=== PATIENT | female | born 1965 | race Caucasian/White ===

== ENCOUNTER 2017-07-23 20:44 | Observation (INO) | payer OTHER ==
--- NOTE | ~2017-07-23 | HEMODYNAMI ---
PATIENT:MOHINI WOO MEDICAL RECORD: [id number] : 63 LOCATION[facility]19 [id number] ADMISSION DATE: 07/23/17 Generatedon:07/24/201713:40 Patient name: MOHINI WOO Patient #: [id number] SSN: : 1965 Date of study: 07/24/2017 Page: Of Hemodynamic Procedure Report Patient Data Patient Demographics Procedure consent was obtained First Name: MOHINI Gender: Female Last Name: CHILO : 1965 Middle Initial: MARIO Age: 52 year(s) Patient #: [id number] Race: Unknown Additional ID: [id number] Contact details Address: [address] State: [place] City: [place] Zip code: [address] Past Medical History Allergies: No known allergies Admission Admission Data Admission Date: 07/23/2017 Admission Time: 21:59 Room #: D.2119 Lab Results Lab Result Date: 07/24/2017 Lab Result Time: 0:00 Biochemistry Name Units Result Min Max BUN mg/dl 23 --(----)-* 7 18 Creatinine mg/dl 0.6 --(*---)-- 0.6 1.3 CBC Name Units Result Min Max Hemoglobin g/dl 12.9 -*(----)-- 13.5 17.5 Procedure Procedure Types Cath Procedure Diagnostic Procedure [facility] w/Coronaries PCI Procedure Coronary Stent Coronary Stent Initial Miscellaneous Procedures Moderate Sedation up to 15 minutes Procedure Description Procedure Date Procedure Date: 07/24/2017 Procedure Start Time: 13:15 Procedure End Time: 13:38 Procedure Staff Name Function Blaine Merlos MD Performing Physician Rosy Vizcaino RT Monitor Willow Emerson RT Scrub Jarrod Samuels RN Nurse Procedure Data Cath Procedure Fluoroscopy Diagnostic fluoroscopy Total fluoroscopy Time: 6.2 time: 6.2 min min Diagnostic fluoroscopy Total fluoroscopy dose: dose: 1101 mGy 1101 mGy Contrast Material Contrast Material Type Amount (ml) Isovue 300 86 Entry Location Entry Primary Successful Side Size Upsize Upsize Entry Closure Abarca ccessful Closure Location (Fr) 1 (Fr) 2 (Fr) Remarks Device Remarks Radial Right 6 Fr Mechanical TR Band artery Short Compression Estimated blood loss: 10 ml Diagnostic catheters Device Type Used For End Catheter Placement Diagnostic Terumo 5Fr Ventriculography Eminence 110cm catheter Diagnostic Infinity 5Fr Procedure AR MOD Catheter Procedure Complications No complications Procedure Medications Medication Administration Route Dosage Oxygen NC 2 l/min Heparin Flush Bag added to field 2 bags (1000units/500ml NS) 0.9% NaCl I.V. 100 ml/hr Radial Cocktail added to field 1 syringe (Verapomil 2mg/Nitro 400mcg/Heparin 1500units) Fentanyl I.V. 50 mcg Versed I.V. 1 mg Fentanyl I.V. 50 mcg Versed I.V. 1 mg Radial Cocktail I.A. 1 syringe (Verapomil 2mg/Nitro 400mcg/Heparin 1500units) Heparin Bolus I.V. 4000 units Integrilin (Bolus I.V. 7.9 ml 2mg/ml) Integrilin (Bolus wasted 2.1 ml 2mg/ml) Plavix P.O. 600 mg Hemodynamics Rest HGB: 12.9 (g/dl) Heart Rate: 84 (bpm) Pressure Samples Time Site Value (mmHg) Purpose Heart Use Rate(bpm) 13:20 LV 108/4,9 Snapshot 95 13:21 AO 111/79(93) Pullback 94 13:21 LV 101/13,11 Pullback 94 Gradients Valve Time Site 1 Site 2 Mean SEP/DFP Peak To Heart Use (mmHg) (sec/min) Peak Rate (mmHg) (bpm) Aortic 13:21 LV AO 0 94 101/13,11 111/79(93) Calculations Valve P-P Mean Valve Index Valve Source Name Gradient Area Flow (cm2) Aortic 0 0 Snapshots Pre Cath Intra NCS Post Cath Vital Signs Time Heart Resp SPO2 etCO2 NIBP (mmHg) Rhythm Pain Sedation Rate (ipm) (%) (mmHg) Status Level (bpm) 13:07:33 78 21 100 37.5 136/86(109) NSR 0 (11) 10(A) , No pain 13:11:47 76 19 97 35.3 125/79(99) NSR 0 (11) 10(A) , No pain 13:15:55 76 17 97 24 130/79(100) NSR 0 (11) 9(A) , No pain 13:20:04 83 16 97 37.6 137/81(119) NSR 0 (11) 9(A) , No pain 13:24:14 98 17 94 20.3 118/85(100) NSR 0 (11) 9(A) , No pain 13:28:18 114 17 95 39 123/83(108) NSR 0 (11) 9(A) , No pain 13:32:24 88 17 96 14.2 124/86(99) NSR 0 (11) 9(A) , No pain 13:36:32 95 16 98 39.1 131/81(114) NSR 0 (11) 10(A) , No pain 13:38:20 89 15 98 39 121/83(99) NSR 0 (11) 10(A) , No pain Medications Time Medication Route Dose Verified Delivered Reason Note s Effectiveness by by 13:09:20 Oxygen NC 2 l/min Blaine Garay Per physician St. Manohar Samuels RN, MD 13:09:29 Heparin Flush added 2 bags Blaine Garay used for Bag to St. Manohar Samuels RN procedure (1000units/500ml field CRAWFORD NS) 13:09:36 0.9% NaCl I.V. 100 Blaine Garay Per physician ml/hr [facility]. Manohar Samuels RN, MD 13:09:45 Radial Cocktail added 1 Blaine Garay used for (Verapomil to syringe St. Manohar Samuels RN procedure 2mg/Nitro field CRAWFORD 400mcg/Heparin 1500units) 13:13:02 Fentanyl I.V. 50 mcg Blaine Garay for sedation St. Manohar Samuels RN, MD 13:13:10 Versed I.V. 1 mg Blaine Gaary for sedation St. Manohar Samuels RN, MD 13:19:47 Fentanyl I.V. 50 mcg Blaine Garay for sedation St. Manohar Samuels RN, MD 13:19:52 Versed I.V. 1 mg Blaine Garay for sedation St. Manohar Samuels RN, MD 13:19:59 Radial Cocktail I.A. 1 Blaine Valladares for (Verapomil syringe St. Manohar Merlos vasodilation 2mg/Vivienne CRAWFORD MD 400mcg/Heparin 1500units) 13:30:30 Heparin Bolus I.V. 4000 Blaine Garay for units [facility]. Manohar Samuels RN anticoagulation 13:30:52 Integrilin I.V. 7.9 ml Blaine Garay for (Bolus 2mg/ml) St. Manohar Samuels RN anticoagulation 13:33:14 Integrilin wasted 2.1 ml Blaine Garay for (Bolus 2mg/ml) St. Manohar Samuels RN anticoagulation 13:37:25 Plavix P.O. 600 mg Blaine Garay for St. Manohar Samuels RN antiplatelet therapy Procedure Log Time Note 12:43:13 Rosy Vizcaino RT(R) sent for patient. Start room use. 12:52:27 Diagnostic Cath Status : Elective 12:53:14 Time tracking: Regular hours 12:53:18 Plan of Care:Hemodynamics will remain stable., Cardiac rhythm will remain stable., Comfort level will be maintained., Respiratory function will remain adequate., Patient/ family verbilizes understanding of procedure., Procedure tolerated without complication., Recovers from procedure without complications.. 12:53:55 Lab Result : Hemoglobin 12.9 g/dl 12:53:55 Lab Result : Creatinine 0.6 mg/dl 12:53:55 Lab Result : BUN 23 mg/dl 12:54:05 Patient received from Med II to [facility] 2 Alert and oriented. Tansferred to table in Supine position. 12:54:06 Warm blankets applied, and arie hugger turned on for patient comfort. 12:54:06 Correct patient and procedure confirmed by team. 12:54:07 Signed procedure consent form obtained from patient. 12:54:09 ECG and BP/O2 sat monitors applied to patient. 13:06:32 Vital chart was started 13:06:34 Baseline sample Acquired. 13:06:39 Rhythm: sinus rhythm 13:06:41 Full Disclosure recording started 13:06:47 H&P Date Dictated: 07/24/2017 Within 30 days and on chart.. 13:06:50 Pre-procedure instructions explained to patient. 13:06:52 Family in waiting room. 13:06:54 Patient NPO since Midnight. 13:07:06 Patient allergic to No known allergies 13:07:11 Is the patient allergic to Iodine/contrast media? No. 13:07:16 Is patient on blood thinner?No 13:07:17 Patient diabetic? Yes. 13:07:18 If diabetic: On Metformin? Yes 13:07:22 If on Metformin: Last Dose? 07/23/2017 13:07:26 Snore? Yes 13:07:27 Sleep apnea? No 13:07:37 Airway obstruction? Yes asthma 13:07:41 Dentures? Yes ? 13:07:49 Patient pain scale 4/10 left arm. 13:08:08 IV patent on arrival in right forearm with 0.9% NaCl at [facility] 13:08:12 Lab results completed and on chart. 13:08:15 Right Radial & Right Groin area was prepped with chlora-prep and draped in sterile fashion 13:08:16 Alarms reviewed by R. N. 13:08:17 Sharps counted by scrub and verified by R.N. 13:08:18 Physician paged 13:09:20 Oxygen 2 l/min NC was administered by Jarrod Samuels RN; Per physician; 13:09:29 Heparin Flush Bag (1000units/500ml NS) 2 bags added to field was administered by Jarrod Samuels RN; used for procedure; 13:09:36 0.9% NaCl 100 ml/hr I.V. was administered by Jarrod Samuels RN; Per physician; 13:09:45 Radial Cocktail (Verapomil 2mg/Nitro 400mcg/Heparin 1500units) 1 syringe added to field was administered by Jarrod Samuels RN; used for procedure; 13:09:54 Use device set Radial Dx 13:09:55 ACIST: Syringe (94158) opened to sterile field. 13:09:56 Medline Cath Pack ([id number]) opened to sterile field. 13:09:56 Bag Decanter () opened to sterile field. 13:09:56 Terumo 6Fr Slender Glidesheath opened to sterile field. 13:09:57 St Jaya 260cm J .035 wire opened to sterile field. 13:09:57 ACIST: Hand Control (65637) opened to sterile field. 13:09:58 ACIST: Manifold (21048) opened to sterile field. 13:09:58 Tegaderm 4 x 4 (1626W) opened to sterile field. 13:09:59 MBrace Wrist Support ([id number]) opened to sterile field. 13:12:00 Physician arrived 13:12:01 --------ALL STOP TIME OUT------ 13:12:01 Final Timeout: patient, procedure, and site verified with staff and physician. All members of the team are in agreement. 13:12:04 Right Radial & Right Groin site verified by team. 13:12:08 Physical assessment completed. ASA score P 2 - A patient with mild systemic disease as per Blaine Merlos MD. 13:12:13 Sedation plan: IV Moderate Sedation Medication:Versed, Fentanyl 13:13:02 Fentanyl 50 mcg I.V. was administered by Jarrod Samuels RN; for sedation; 13:13:10 Versed 1 mg I.V. was administered by Jarrod Samuels RN; for sedation; 13:14:56 Procedure started. 13:15:07 Local anesthetic to right radial artery with Lidocaine 2% by Blaine Merlos MD.INITIAL ACCESS ONLY 13:15:17 A 6 Fr Short sheath was inserted into the Right Radial artery 13:15:20 Zero performed for pressure channel P1 13:19:47 Fentanyl 50 mcg I.V. was administered by Jarrod Samuels RN; for sedation; 13:19:52 Versed 1 mg I.V. was administered by Jarrod Samuels RN; for sedation; 13:19:55 A Diagnostic Terumo 5Fr Eminence 110cm catheter was advanced over the wire and used for Ventriculography. 13:19:59 Radial Cocktail (Verapomil 2mg/Nitro 400mcg/Heparin 1500units) 1 syringe I.A. was administered by Blaine Merlos MD; for vasodilation; 13:21:32 EF : 55 % 13:22:07 LCA angiography performed. 13:24:30 Catheter removed. 13:25:14 A Diagnostic Infinity 5Fr AR MOD Catheter was advanced over the wire and used for Procedure. 13:25:31 RCA angiography performed. 13:26:00 Involution Studiostronic Launcher 6Fr EBU 3.0 guide catheter opened to sterile field. 13:26:01 Catheter removed. 13:27:03 INFLATOR: Buck MasonixCompak Inflation Kit (OE1314) opened to sterile field. 13:27:03 Shah Whisper J 300cm 0.014 guide wire opened to sterile field. 13:27:14 Proceeding to intervention. 13:27:25 6 Fr EBU 3.0 guide catheter was inserted over the wire 13:29:20 Guide catheter removed. 13:30:30 Heparin Bolus 4000 units I.V. was administered by Jarrod Samuels RN; for anticoagulation; 13:30:52 Integrilin (Bolus 2mg/ml) 7.9 ml I.V. was administered by Jarrod Samuels RN; for anticoagulation; 13:31:04 Medtronic Launcher 6Fr EBU 3.5 guide catheter opened to sterile field. 13:31:21 6 Fr EBU 3.5 guide catheter was inserted over the wire 13:31:27 Whisper wire advanced. 13:33:14 Integrilin (Bolus 2mg/ml) 2.1 ml wasted was administered by Jarrod Samuels RN; for anticoagulation; 13:33:26 Wire advanced across lesion. 13:34:36 Inflation Number: 1 A Medtronic Integrity 3.5 X 12 stent was prepped and advanced across the Mid CX. The stent was deployed at 14 RYAN for 0:46 (min:sec). 13:35:44 Terumo TR Band Standard opened to sterile field. 13:35:54 Stent catheter was removed intact over wire. 13:35:54 Wire removed. 13:35:55 Guide catheter removed. 13:36:21 Sheath removed intact; hemostasis achieved with Mechanical Compression to the Right Radial artery. 13:36:24 Procedure ended.(Physican Out) 13:36:46 Fluoroscopy time 06.20 minutes. 13:36:51 Fluoroscopy dose: 1101 mGy 13:36:51 Flurop Dose total: 1101 13:36:56 Contrast amount:Isovue 300 86ml. 13:36:57 Sharps counted by scrub and verified by R.N. 13:37:00 TR band inflated with 10cc of air. 13:37:02 Insertion/operative site no bleeding no hematoma. 13:37:12 Post procedure rhythm: unchanged. 13:37:14 Estimated blood loss: 10 ml 13:37:18 Post procedure instruction explained to patient.Patient verbalizes understanding. 13:37:25 Plavix 600 mg P.O. was administered by Jarrod Samuels RN; for antiplatelet therapy; 13:37:39 Procedure type changed to Cath procedure, Diagnostic procedure, [facility], [facility] w/Coronaries, PCI procedure, Coronary Stent, Coronary Stent Initial, Miscellaneous Procedures, Moderate Sedation up to 15 minutes 13:37:43 Procedure and supply charges have been captured, reviewed, submitted and are correct. 13:38:12 Procedure Complication : No complications 13:38:15 Vital chart was stopped 13:38:16 See physician's report for complete and final results. 13:38:20 Report given to [facility]. 13:38:24 Patient transfered to [facility] II with Bed. 13:38:26 Procedure ended. 13:38:26 Full Disclosure recording stopped 13:38:33 End room use (Document Last) Intervention Summary Intervention Notes Time ActionType Lesion and Equipment Action# Pressure Duration Attributes Used 13:34:36 Place stent Mid CX Medtronic 1 14 00:46 Integrity 3.5 X 12 stent Device Usage Item Name Manufacture Quantity Catalog Hospital Part Current Minim al Lot# / Number Charge Number Stock Stock Serial# Code ACIST: Acist 1 09188 753239 623278 302783 20 Syringe Medical (60199) Systems Inc Medline Cath Cardinal 1 [id number] 400435 60722 393692 5 Pack Health ([id number]) Bag Decanter Microtek 1 2001S 362566 85410 975521 5 () Medical Inc. Terumo 6Fr Terumo 1 [id number] 970066 628869 991242 [address] J[address] 260[address] St Jaya 1 004247 499407 469498 460575 30 J .035 wire ACIST: Hand Acist 1 84737 111164 043083 142856 5 Control Medical (09455) Systems Inc ACIST: Acist 1 16339 988359 831873 469524 5 Manifold Medical (76552) Systems Inc Tegaderm 4 x 3M 1 1626W 411631 192017 262402 5 4 (1626W) MBrace Wrist Advanced 1 140-0250 328149 61081 153073 5 Support Vascular (140) Dynamics Diagnostic Terumo 1 40-4384 632917 682587 736040 5 Terumo 5Fr Eminence 110cm catheter Diagnostic Cardinal 1 [id number] 343658 421153 946047 15 Number 100 5Fr Clarient AR MOD Catheter INFLATOR: Merit 1 JD4811 006154 304090 801688 15 [facility] Medical BasixCompak Inflation Kit (JM9759) Shah Shah 1 [id number] 181330 500222 337243 5 Whisper J Vascular 300cm 0.014 guide wire Medtronic Medtronic 1 [id number] 600721 04099 895193 0 Launcher 6Fr EBU 3.0 guide catheter Medtronic Medtronic 1 [id number] 297031 36269 292793 3 Launcher 6Fr EBU 3.5 guide catheter Medtronic Medtronic 1 [id number] 317547 121987 8 [id number] Integrity 3.5 X 12 stent Terumo TR Terumo 1 [id number] 098504 230282 787213 40 Band Standard Signature Audit [place] Stage Time Signature Unsigned Intra-Procedure 07/24/2017 Rosy Vizcaino 1:40:54 PM RT(R) Signatures Monitor : Rosy Vizcaino Signature : RT Date : Time : [place] [id number] [place], [place] [address]
[2017-07-23 21:10] LABS: BASOPHILS 0.5 % (0-2); HEMATOCRIT 39.3 % (36.0-48.0); HEMOGLOBIN 12.9 g/dL (12-16); IMMATURE GRANULOCYTES 0.2 % (0-5); LYMPHOCYTES 35.5 % (15-50); MCH 28.9 pg (26.0-34.0); MCHC 32.8 g/dL (31.0-37.0); MCV 88.1 fL (80.0-100.0); MEAN PLATELET VOLUME 9.3 fL (7.4-10.4); MONOCYTES 8.4 % (2-11); NEUTROPHILS 52.4 % (40-80); PLATELET COUNT 289 10x3/uL (130-400); RBC 4.46 10x6/uL (4.00-5.40); RDW 13.2 % (11.5-14.5); WBC 6.6 10x3/uL (4.8-10.8)
[2017-07-23 21:32] LABS: ALBUMIN 3.7 g/dL (3.4-5.0); ALKALINE PHOSPHATASE 70 U/L (46-116); ALT (SGPT) 20 U/L (10-68); BILIRUBIN - TOTAL 0.64 mg/dL (0.2-1.3); CALC OSMOLALITY 282 mosm/kg (275-300); CALCIUM 8.6 mg/dL (8.5-10.1); CARBON DIOXIDE 21.9 mmol/L (21.0-32.0); CHLORIDE - SERUM 104 mmol/L (98-107); CREATININE - SERUM 0.6 mg/dL (0.6-1.3); GLUCOSE 152 mg/dL (74-106); POTASSIUM - SERUM 3.9 mmol/L (3.5-5.1); PROTEIN - SERUM 7.5 g/dL (6.4-8.2); SODIUM 138 mmol/L (136-145); UREA NITROGEN 23 mg/dL (7-18); eGFR NON AFRICAN AMERICAN > 90 mL/min (90-120)
[2017-07-23 21:45] LABS: CHOL - HDL RATIO 3.9 ratio (2.3-4.1); CHOLESTEROL, TOTAL 178 mg/dL (0-200); CKMB 0.9 U/L (0.0-3.6); CREATINE KINASE 78 UL (21-215); HDL CHOLESTEROL 46 mg/dL (32-96); LDL CHOLESTEROL 109 mg/dL (0-100); LDL-HDL RATIO 2.4 ratio (1.5-3.5); PRO BNP 60 pg/mL (0-125); TRIGLYCERIDE 118 mg/dL (30-200); TROPONIN-I < 0.017 ng/mL (0.000-0.060)
[2017-07-24] MEDS ORDERED: PRAVACHOL40 MG PO (00:31)
[2017-07-24] MEDS ORDERED: LOPRESSOR25 MG PO (00:34)
[2017-07-24] MEDS ORDERED: GLUCOPHAGE500 MG PO (00:35)
[2017-07-24] MEDS ORDERED: GLUCOPHAGE1000 MG PO (00:36)
[2017-07-24] MEDS ORDERED: OMEPRAZOLE20 M1 PO (00:37)
[2017-07-24] MEDS ORDERED: FLOVENT DI50 MCG/DIS INH (00:37)
[2017-07-24] MEDS ORDERED: GLUCOTROL 5 MG T5 MG PO (00:37)
[2017-07-24] MEDS ORDERED: BAYER CHEWABLE81 MG PO (00:38)
[2017-07-24 01:11] VITALS: BP 110/71
--- NOTE | 2017-07-24 01:45 | NUR ---
PT AWAKE, ALERT, ORIENTED, ASKING FOR ASSISTANCE USING THE PHONE IN HER ROOM. I DID DIAL THE GIVEN NUMBER FOR PT IT WAS A LOCAL NUMBER, AND EXPLAINED TO PT HOW TO DIAL "9" FOR AN OUTSIDE LINE. PT DENIES ANY NEEDS. PT IS IN NO ACUTE DISTRESS AT THIS TIME. WILL CONTINUE TO MONITOR PT CLOSELY. BED LOW, CALL LIGHT IN REACH, SIDE RAILS X 2, HOB 30-35 DEGREES.
--- NOTE | 2017-07-24 01:55 | NUR ---
PT IN BED RESTING. AROUSES TO VOICE. DENIES NEEDS AT THIS TIME.
[2017-07-24 04:29] VITALS: BP 112/61
[2017-07-24 07:31] VITALS: BP 149/79
--- NOTE | 2017-07-24 10:11 | NUR ---
TELEMETRY SR. CONSENTS SIGNED FOR THE [facility]. WILL CONT. PLAN OF CARE.
[2017-07-24 10:49] LABS: BASOPHILS 0.4 % (0-2); HEMATOCRIT 37.2 % (36.0-48.0); HEMOGLOBIN 12.4 g/dL (12-16); IMMATURE GRANULOCYTES 0.2 % (0-5); LYMPHOCYTES 34.3 % (15-50); MCH 29.3 pg (26.0-34.0); MCHC 33.3 g/dL (31.0-37.0); MCV 87.9 fL (80.0-100.0); MEAN PLATELET VOLUME 9.3 fL (7.4-10.4); MONOCYTES 8.1 % (2-11); PLATELET COUNT 278 10x3/uL (130-400); RBC 4.23 10x6/uL (4.00-5.40); RDW 13.2 % (11.5-14.5)
[2017-07-24 10:52] LABS: WBC 4.8 10x3/uL (4.8-10.8)
[2017-07-24 10:58] VITALS: BP 110/74
--- NOTE | 2017-07-24 11:01 | NUR ---
UP ANDLIB. DOES NOT WANT SDCS.
[2017-07-24 11:11] LABS: CALCIUM 8.8 mg/dL (8.5-10.1); CARBON DIOXIDE 22.7 mmol/L (21.0-32.0); CHLORIDE - SERUM 102 mmol/L (98-107); POTASSIUM - SERUM 3.9 mmol/L (3.5-5.1); SODIUM 136 mmol/L (136-145); UREA NITROGEN 21 mg/dL (7-18); eGFR NON AFRICAN AMERICAN 79 mL/min (90-120)
[2017-07-24 11:12] LABS: CALC OSMOLALITY 283 mosm/kg (275-300); CREATININE - SERUM 0.8 mg/dL (0.6-1.3); GLUCOSE 256 mg/dL (74-106)
[2017-07-24 12:49] VITALS: Wt 88.5 kg
--- NOTE | 2017-07-24 12:51 | NUR ---
PRE-OPS GIVEN. LEAVING FOR MANAGER RECRUITING BY BED.
--- NOTE | 2017-07-24 14:22 | NUR ---
BACK FROM MOLD BREAKER. VS WNL. RIGHT WRIST STABLE WITH TR BAND INTACT. WILL MONITOR.
[2017-07-24] MEDS ORDERED: PLAVIX75 MG PO (15:42)
--- NOTE | 2017-07-24 17:06 | NUR ---
TR BAND DCD WITHOUT BLEEDING OR HEMATOMA NOTED. WILL MONITOR.
--- NOTE | 2017-07-24 17:23 | NUR ---
IV AND TELEMETRY DCD. DC PLANS GIVEN. UNDERSTANDING VOICED. ESCORTED TO CAR BY W/C.
--- NOTE | 2017-07-29 13:58 | CN ---
PATIENT NAME:MOHINI WOO MEDICAL RECORD: [id number] : 63 LOCATION:D. D.2119 ADMIT DATE: 07/23/17 ACCOUNT: [id number] CONSULTING PHYSICIAN: ORTIZ FIGUEROA MD REFERRING PHYSICIAN: KHALIDA GIBBS MD DATE OF CONSULTATION: 07/24/2017 HISTORY OF PRESENT ILLNESS: A 52-year-old lady with a known history of coronary artery disease, status post stenting, subsequently who had re-intervention with balloon only secondary to restenosis. Admitted with chest pain, typical for angina. Cardiac enzymes negative so far. ECG without acute change. We are asked to see her concerning her cardiovascular status. She is about 6 months out from her most recent intervention. PAST MEDICAL HISTORY: 1. History of hypertension. 2. Hyperlipidemia. 3. Diabetes mellitus. 4. Gastroesophageal reflux disease. ALLERGIES: None known. MEDICATIONS: Glucophage 1 gram b.i.d., glipizide 5 mg b.i.d., omeprazole 20 every day, aspirin 81 every day, pravastatin 40 every day, metoprolol 25 b.i.d. SOCIAL HISTORY: Lives here in [place]. Works at [employer]. She is able to take care of her ADLs. REVIEW OF SYSTEMS: The patient reports easy bruising but reports no swollen glands. The patient reports no fever, no night sweats, no significant weight gain, no significant weight loss. No significant exercise tolerance. The patient reports no dry eyes, no irritation, no vision change. Patient reports no difficulty hearing and no ear pain. Patient reports no frequent nose bleeds or nose and sinus problems. Patient reports on arm pain on exertion. No shortness of breath while lying down. No history of heart murmur. Patient reports no cough, no wheezing or coughing up blood. Patient reports no abdominal pain, no vomiting. Normal appetite. No diarrhea and not vomiting blood. No nausea and no constipation. Patient reports no incontinence. No difficulty urinating. No hematuria. No increased frequency. Patient reports no muscle aches. No weakness, no arthralgias, no back pain. No swelling of the extremities. Patient reports no abnormal mole, no jaundice, no rashes. Reports no loss of consciousness. No weakness and no numbness. No seizures, dizziness, or headaches. The patient reports no depression, no sleep disturbance, feeling safe in a relationship and no alcohol abuse. Patient reports on fatigue. Reports no runny nose or sinus pressure. No itching, no hives, and no frequent sneezing. PHYSICAL EXAMINATION: GENERAL: Pleasant female, in no acute distress, appears stated age. VITAL SIGNS: Blood pressure 149/79, pulse 86 and regular. HEENT: Normocephalic, atraumatic. NECK: No JVD or bruit. HEART: Regular. LUNGS: Lung shay are clear. ABDOMEN: Soft, nontender. CONSULT REPORT [id number] MOHINI WOO EXTREMITIES: Pulses 2+. There is no edema. NEUROLOGIC: Grossly intact. DIAGNOSTIC DATA: ECG without acute change. IMPRESSION: Acute coronary syndrome, certainly within window for restenosis. PLAN: We will plan for diagnostic angiography, intervention based on above. TRANSINT:[id number] Voice Confirmation ID: [id number] DOCUMENT ID: [id number] ORTIZ FIGUEROA MD at 1358 CC: [id number] DICTATION DATE: 07/24/17910 CORRECTION OFFICER SUPERVISOR: 07/24/17 1312 DIS IN 07/24/17 [place] [address] [place] [address]
--- NOTE | 2017-07-29 13:58 | OP ---
PATIENT NAME: MOHINI WOO MEDICAL RECORD: [id number] :63 LOCATION:D.M2 D.2119 ADMISSION DATE:07/23/17 SURGEON: ORTIZ FIGUEROA MD DATE OF OPERATION: 07/24/2017 PROCEDURE: Left heart catheterization, selective coronary angiography, right radial approach. CATHETERS: A 5-Italian sheath, 5/4 left and right Mariana, 5/4 pig. The procedure was tolerated and the patient returned to the mitchell after stenting the circumflex. FINDINGS: Left ventriculography in 30-degree YBARRA view: Normal wall motion, normal systolic function. CORONARY ANATOMY: LEFT MAIN: Left main free of disease. LAD: An area of previous stenting shows perhaps a 30% to 40% restenosis. CIRCUMFLEX: Circumflex is somewhat codominant system. Circumflex has 80% stenosis before the takeoff of first OM. RIGHT CORONARY ARTERY: Again, codominant system, is free of disease. PLAN: Intervention of the circumflex momentarily. DESCRIPTION OF PROCEDURE: Using an indwelling radial sheath, an EBU 3.5 guiding catheter provided excellent guide catheter support followed by a 300 cm Whisper wire was placed across the tightly occluded circ and distal portion of vessel. Stent deployed was a 3.5 x 12 Integrity nondrug-eluting stent up to 14 atmospheres for 45 seconds. Final injection shows excellent resolution of 80% stenosis, no significant residual. MARY flow was 3 throughout the procedure. Heparin and Integrilin were used during the case. Sheath closed with TR band. TRANSINT:[id number] Voice Confirmation ID: [id number] DOCUMENT ID: [id number] ORTIZ FIGUEROA MD at 1358 CC: [id number] DICTATION DATE: 07/24/17 1341 FIELD MARKETING REPRESENTATIVE: 07/24/17 1441 DIS IN 07/24/17 [place] [id number] [place] [address]
== END 2017-07-24 17:39 | disposition home or self-care (01) ==
LOC: D.ER 20:44 → D.M2 21:59 → OBSVTIME 21:59 → D.M2 07-24 17:39
PROVIDERS: Family Medicine; Internal Medicine Interventional Cardiology; ADMIT Family Medicine
DX: I25.10 Atherosclerotic heart disease of native coronary artery without angina pectoris (principal); E11.65 Type 2 diabetes mellitus with hyperglycemia; E78.5 Hyperlipidemia, unspecified; I10 Essential (primary) hypertension; K21.9 Gastro-esophageal reflux disease without esophagitis; J45.909 Unspecified asthma, uncomplicated

== ENCOUNTER 2018-08-14 19:47 | Inpatient (IN) | payer OTHER ==
[~2018-08-14] VITALS: Ht 165.1 cm; Wt 91.8 kg
--- NOTE | ~2018-08-14 | HEMODYNAMI ---
PATIENT:MOHINI WOO MEDICAL RECORD: [id number] : 63 LOCATION:[facility] D.2118 ADMISSION DATE: 08/14/18 Generatedon:08/15/201814:30 Patient name: MOHINI WOO Patient #: [id number] SSN: : 1965 Date of study: 08/15/2018 Page: Of Hemodynamic Procedure Report Patient Data Patient Demographics Procedure consent was obtained First Name: MOHINI Gender: Female Last Name: CHILO : 1965 Middle Initial: MARIO Age: 53 year(s) Patient #: [id number] Race: Additional ID: [id number] Contact details Address: [address] State: [place] City: [place] Zip code: [address] Past Medical History Allergies: No known allergies Admission Admission Data Admission Date: 08/14/2018 Admission Time: 21:45 Room #: D.2118 Procedure Procedure Types Cath Procedure Diagnostic Procedure LHC LH w/Coronaries Procedure Description Procedure Date Procedure Date: 08/15/2018 Procedure Start Time: 14:13 Procedure End Time: 14:26 Procedure Staff Name Function Blaine Salazar MD Performing Physician Da Camargo RT Monitor Willow Emerson RT Scrub Lanny Colindres RN Nurse Procedure Data Cath Procedure Fluoroscopy Diagnostic fluoroscopy Total fluoroscopy Time: 1.5 time: 1.5 min min Diagnostic fluoroscopy Total fluoroscopy dose: 388 dose: 388 mGy mGy Contrast Material Contrast Material Type Amount (ml) Isovue 300 47 Entry Location Entry Primary Successful Side Size Upsize Upsize Entry Closure [place]barca ccessful Closure Location (Fr) 1 (Fr) 2 (Fr) Remarks Device Remarks Radial Right 6 Fr Mechanical artery Short Compression Diagnostic catheters Device Type Used For End Catheter Placement DIAGNOSTIC [place] 110cm 5 LV Angiography Fr catheter ([id number]) Procedure Complications No complications Procedure Medications Medication Administration Route Dosage 0.9% NaCl I.V. 100 ml/hr Oxygen etCO2 Nasal cannula 2 l/min Lidocaine 2% added to field 20 Heparin Flush Bag added to field 2 bags (1000units/500ml NS) Radial Cocktail added to field 1 syringe (Verapomil 2mg/Nitro 400mcg/Heparin 1500units) Versed I.V. 2 mg Fentanyl I.V. 50 mcg Versed I.V. 2 mg Fentanyl I.V. 50 mcg Hemodynamics Rest Heart Rate: 75 (bpm) Pressure Samples Time Site Value (mmHg) Purpose Heart Use Rate(bpm) 14:19 LV 110/15,22 Snapshot 83 14:19 LV 116/21,23 EDP 81 14:19 AO 112/80(95) Pullback 81 14:19 LV 104/20,22 Pullback 81 Gradients Valve Time Site 1 Site 2 Mean SEP/DFP Peak To Heart Use (mmHg) (sec/min) Peak Rate (mmHg) (bpm) Aortic 14:18 LV AO 89 Aortic 14:19 LV AO 0 10 0 81 104/20,22 112/80(95) Calculations Valve P-P Mean Valve Index Valve Source Name Gradient Area Flow (cm2) Aortic 0 0 0 0 Snapshots Pre Cath Intra NCS Post Cath Vital Signs Time Heart Resp SPO2 etCO2 NIBP (mmHg) Rhythm Pain Sedation Rate (ipm) (%) (mmHg) Status Level (bpm) 14:00:55 72 18 96 30 132/85(108) NSR 0 (11) 10(A) , No pain 14:05:17 74 19 100 30.6 141/79(124) NSR 0 (11) 10(A) , No pain 14:09:37 68 15 96 38 122/86(101) NSR 0 (11) 10(A) , No pain 14:13:53 71 10 98 38 130/84(105) NSR 0 (11) 10(A) , No pain 14:18:09 82 12 97 29 105/74(89) NSR 0 (11) 9(A) , No pain 14:22:21 82 12 98 35 106/72(88) NSR 0 (11) 9(A) , No pain 14:27:20 72 12 92 22.3 115/76(89) NSR 0 (11) 9(A) , No pain Medications Time Medication Route Dose Verified Delivered Reason Notes E ffectiveness by by 13:59:58 0.9% NaCl I.V. 100 Blaine Ca used for ml/hr Martin Jens procedure MD [place]E 14:00:05 Oxygen etCO2 2 l/min Blaine Ca used for Nasal [facility] procedure cannula MD [place]E 14:00:10 Lidocaine 2% added 20ml Blaine Valladares for local to vial [facility] anesthetic field MD C[place] 14:00:16 Heparin Flush added 2 bags Blaine Valladares used for Bag to [facility] procedure (1000units/500ml field MD CRAWFORD NS) 14:00:23 Radial Cocktail added 1 Blaine Valladares used for (Verapomil to syringe [facility] procedure 2mg/Nitro field MD CRAWF[place] 400mcg/Heparin 1500units) 14:09:06 Versed I.V. 2 mg Blaine Schneidera for [facility] Colindres sedation MD [place] 14:09:17 Fentanyl I.V. 50 mcg Blaine Schneidera for [facility] Colindres sedation MD [place] 14:16:30 Versed I.V. 2 mg Blaine Schneidera for [place] Jens sedation MD [place] 14:16:35 Fentanyl I.V. 50 mcg Blaine Ca for [place] Jens sedation MD GILLESPIEfilling hand Log Time Note 13:48:52 Informed consent obtained and on chart 13:49:15 Lanny Colindres RN sent for patient. Start room use. 13:49:16 Time tracking: Regular hours (M-F 7:00 - 5:00) 13:49:20 Plan of Care:Hemodynamics will remain stable., Cardiac rhythm will remain stable., Comfort level will be maintained., Respiratory function will remain adequate., Patient/ family verbilizes understanding of procedure., Procedure tolerated without complication., Recovers from procedure without complications.. 13:53:08 Patient received from 410 Labs II to CCL 1 Alert and oriented. Tansferred to table in Supine position. 13:59:47 Vital chart was started 13:59:58 0.9% NaCl 100 ml/hr I.V. was administered by Lanny Colindres RN; used for procedure; 14:00:05 Oxygen 2 l/min etCO2 Nasal cannula was administered by Lanny Colindres RN; used for procedure; 14:00:10 Lidocaine 2% 20ml vial added to field was administered by Blaine Salazar MD; for local anesthetic; 14:00:16 Heparin Flush Bag (1000units/500ml NS) 2 bags added to field was administered by Blaine Salazar MD; used for procedure; 14:00:23 Radial Cocktail (Verapomil 2mg/Nitro 400mcg/Heparin 1500units) 1 syringe added to field was administered by Blaine Salazar MD; used for procedure; 14:00:26 Warm blankets applied, and arie hugger turned on for patient comfort. 14:00:26 Correct patient and procedure confirmed by team. 14:00:27 ECG and BP/O2 sat monitors applied to patient. 14:00:28 Baseline sample Acquired. 14:00:31 Rhythm: sinus rhythm 14:00:33 Full Disclosure recording started 14:00:37 H&P Date Dictated: 08/15/2018 New H&P dictated by physician.. 14:00:38 Pre-procedure instructions explained to patient. 14:00:39 Pre-op teaching completed and patient verbalized understanding. 14:00:41 Family in patients room. 14:00:42 Patient NPO since Midnight. 14:00:44 Is the patient allergic to Iodine/contrast media? No. 14:00:45 Was the patient premedicated? No 14:00:46 Is patient on blood thinner?Yes 14:00:48 ACC The patient was administered the following blood thiners within the last 24 hours: ACCPlavix 14:00:50 Patient diabetic? Yes. 14:00:52 If diabetic: On Metformin? Yes 14:00:54 If on Metformin: Last Dose? 08/14/2018 14:00:57 Previous problem with sedation/anesthesia? No ? 14:04:24 Snore? Yes 14:04:26 Sleep apnea? No 14:04:28 Deviated septum? No 14:04:29 Opens mouth fully? Yes 14:04:31 Sticks out tongue? Yes 14:04:37 Airway obstruction? Yes COPD 14:04:44 Dentures? Yes IN TIGHT 14:04:52 Pre procedure: right dorsailis pedis pulse 2+ Normal; easily identifiable; not easily obliterated 14:04:55 Modified Ibrahima's test Ulnar < 7 seconds 14:04:59 Patient pain scale 0/10 ?. 14:05:04 IV patent on arrival in left antecubital with 0.9% NaCl at 10ml/hr. 14:05:13 Lab results completed and on chart. 14:05:16 Right Radial & Right Groin area was prepped with chlora-prep and draped in sterile fashion 14:05:17 Alarms reviewed by Carol N. 14:05:17 Sharps counted by scrub and verified by CarolN. 14:08:47 Physician arrived 14:08:51 --------ALL STOP TIME OUT------ 14:08:51 Final Timeout: patient, procedure, and site verified with staff and physician. All members of the team are in agreement. 14:08:54 Right Radial & Right Groin site verified by team. 14:08:57 Physical assessment completed. ASA score P 2 - A patient with mild systemic disease as per Blaine Salazar MD. 14:09:06 Versed 2 mg I.V. was administered by Lanny Colindres RN; for sedation; 14:09:12 Sedation plan: IV Moderate Sedation Medication:Versed, Fentanyl 14::17 Fentanyl 50 mcg I.V. was administered by Lanny Colindres RN; for sedation; 14:09:20 Use device set Radial Dx or PCI 14:09:21 ACIST Syringe (91616) opened to sterile field. 14:09:22 Medline Cath Pack ([id number]) opened to sterile field. 14:09:23 Bag Decanter (2002) opened to sterile field. 14:09:23 DIAGNOSTIC WIRE .035 260cm J wire (822254) opened to sterile field. 14:09:24 ACIST Hand Control (20792) opened to sterile field. 14:09:25 ACIST Manifold (50596) opened to sterile field. 14:09:25 Tegaderm 4 x 4 (1626W) opened to sterile field. 14:09:26 MBrace Wrist Support ([id number]) opened to sterile field. 14:09:29 TR BAND Standard (ULT33LFR) opened to sterile field. 14:09:31 SHEATH 6FR Slender (801060) opened to sterile field. 14:13:05 Procedure started. 14:13:35 Local anesthetic to right radial artery with Lidocaine 2% by Blaine Salazar MD.INITIAL ACCESS ONLY 14:13:45 A 6 Fr Short sheath was inserted into the Right Radial artery 14:14:56 Zero performed for pressure channel P1 14:16:30 Versed 2 mg I.V. was administered by Lanny Colindres RN; for sedation; 14:16:35 Fentanyl 50 mcg I.V. was administered by Lanny Colindres RN; for sedation; 14:17:08 Zero performed for pressure channel P1 14:17:16 Zero performed for pressure channel P1 14:17:21 Zero performed for pressure channel P1 14:17:28 Zero performed for pressure channel P1 14:18:06 A DIAGNOSTIC [place] 110cm 5 Fr catheter (655250) was advanced over the wire and used for LV Angiography. 14:18:16 LV angiography performed. 14:19:23 LV gram done using YBARRA 14:19:28 EF : 55 % 14:19:50 RCA angiography performed. 14:20:26 LCA angiography performed. 14:21:50 TR BAND Standard (JOY58IWR) opened to sterile field. 14:22:02 Catheter removed. 14:22:12 Sheath removed intact; hemostasis achieved with Mechanical Compression to the Right Radial artery. 14:22:15 Procedure ended.(Physican Out) 14:24:55 Contrast amount:Isovue 300 47ml. 14:25:02 Fluoroscopy time 01.50 minutes. 14:25:11 Fluoroscopy dose: 388 mGy 14:25:11 Flurop Dose total: 388 14:25:13 Sharps counted by scrub and verified by R.N. 14:25:14 Insertion/operative site no bleeding no hematoma. 14:25:17 Post-op/insertion site Right Femoral artery dressed using a 4 x 4 and Tegaderm. 14:25:29 TR band inflated with 11cc of air. 14:25:34 Post right radial artery:stable 14:25:36 Post Procedure Pulses reassessed and unchanged 14:25:40 Post procedure instruction explained to patient.Patient verbalizes understanding. 14:25:42 Procedure and supply charges have been captured, reviewed, submitted and are correct. 14:26:09 Procedure Complication : No complications 14:26:12 Vital chart was stopped 14::12 See physician's report for complete and final results. 14:26:14 Report given to PCU. 14:26:22 Patient transfered to PCU with Bed. 14::24 Procedure ended. 14::24 Full Disclosure recording stopped 14::27 End room use (Document Last) Device Usage Item Name Manufacture Quantity Catalog Hospital Part Current Minimal Lot# / Number Charge Number Stock Stock Serial# Code ACIST Acist 1 10236 894138 609105 [id number] 20 Syringe Medical (80659) Systems Inc Medline Medline 1 [id number] 475192 37915 439803 5 Cath Pack ([id number]) Bag Microtek 1 2001S 206620 51320 913916 5 Decanter Medical Inc. (2001S) DIAGNOSTIC [facility] [place] 1 259919 689772 978225 841147 30 WIRE .035 260cm J wire (843423) ACIST Hand Acist 1 01129 335184 049755 481733 5 Control Medical (20050) Systems Inc ACIST Acist 1 78592 712263 438328 060290 5 Manifold Medical (93008) Systems Inc Tegaderm 4 3M 1 1626W 154641 718183 737899 5 x 4 (1626W) MBrace Advanced 1 140-0250-00 025065 32448 395644 5 Wrist Vascular Support Dynamics ([id number]) TR BAND Terumo 2 [id number] 905858 823763 447330 40 Standard (OIA31GWK) SHEATH 6FR Terumo 1 [id number] 323348 995305 795945 5 Slender (80-1060) DIAGNOSTIC Terumo 1 40-6155 547741 718280 629995 5 [place] 110cm 5 Fr catheter (596577) Signature Audit [place] Stage Time Signature Unsigned Intra-Procedure 08/15/2018 Da Camargo RT(R) 2:30:06 PM Signatures Monitor : Da Camargo RT Signature : Date : Time : [place] [id number] [place] [address]
[~2018-08-14 19:47] MED LIST: BAYER CHEWABLE81 MG PO; FLOVENT DI50 MCG/DIS INH; GLUCOPHAGE1000 MG PO; GLUCOPHAGE500 MG PO; GLUCOTROL 5 MG T5 MG PO; LOPRESSOR25 MG PO; OMEPRAZOLE20 M1 PO; PLAVIX75 MG PO; PRAVACHOL40 MG PO
[2018-08-14 20:18] LABS: BASOPHILS 0.6 % (0-2); EOSINOPHILS 4.2 % (0-7); HEMATOCRIT 40.1 % (36.0-48.0); HEMOGLOBIN 13.7 g/dL (12-16); LYMPHOCYTES 44.3 % (15-50); MCH 30.1 pg (26.0-34.0); MCHC 34.2 g/dL (31.0-37.0); MCV 88.1 fL (80.0-100.0); MEAN PLATELET VOLUME 9.4 fL (7.4-10.4); MONOCYTES 9.8 % (2-11); NEUTROPHILS 41.1 % (40-80); PLATELET COUNT 280 10x3/uL (130-400); RBC 4.55 10x6/uL (4.00-5.40); RDW 12.1 % (11.5-14.5); WBC 5.2 10x3/uL (4.8-10.8)
[2018-08-14 20:33] LABS: ALBUMIN 3.5 g/dL (3.4-5.0); ALKALINE PHOSPHATASE 72 U/L (46-116); ALT (SGPT) 32 U/L (10-68); BILIRUBIN - TOTAL 0.61 mg/dL (0.2-1.3); CALC OSMOLALITY 284 mosm/kg (275-300); CALCIUM 8.4 mg/dL (8.5-10.1); CARBON DIOXIDE 23.2 mmol/L (21.0-32.0); CHLORIDE - SERUM 101 mmol/L (98-107); CREATININE - SERUM 0.7 mg/dL (0.6-1.3); GLUCOSE 242 mg/dL (74-106); POTASSIUM - SERUM 4.1 mmol/L (3.5-5.1); PROTEIN - SERUM 7.1 g/dL (6.4-8.2); SODIUM 138 mmol/L (136-145); UREA NITROGEN 14 mg/dL (7-18); eGFR NON AFRICAN AMERICAN > 90 mL/min (90-120)
[2018-08-14 20:43] LABS: CKMB 0.8 U/L (0.0-3.6); CREATINE KINASE 59 UL (21-215); TROPONIN-I < 0.017 ng/mL (0.000-0.060)
[2018-08-14 23:22] VITALS: BP 122/75; BMI 34.2
[2018-08-14 23:37] LABS: CKMB 0.6 U/L (0.0-3.6); CREATINE KINASE 55 UL (21-215)
[2018-08-14 23:39] LABS: TROPONIN-I < 0.017 ng/mL (0.000-0.060)
[2018-08-15 04:26] LABS: CREATINE KINASE 48 UL (21-215); TROPONIN-I < 0.017 ng/mL (0.000-0.060)
[2018-08-15 05:04] VITALS: BP 120/64
[2018-08-15 08:43] LABS: BASOPHILS 0.4 % (0-2); HEMATOCRIT 39.3 % (36.0-48.0); HEMOGLOBIN 13.3 g/dL (12-16); IMMATURE GRANULOCYTES 0.2 % (0-5); LYMPHOCYTES 43.6 % (15-50); MCHC 33.8 g/dL (31.0-37.0); MCV 88.5 fL (80.0-100.0); MEAN PLATELET VOLUME 9.8 fL (7.4-10.4); MONOCYTES 10.2 % (2-11); NEUTROPHILS 41.6 % (40-80); PLATELET COUNT 268 10x3/uL (130-400); RBC 4.44 10x6/uL (4.00-5.40); RDW 12.1 % (11.5-14.5); WBC 5.7 10x3/uL (4.8-10.8)
[2018-08-15 08:49] LABS: CALC OSMOLALITY 286 mosm/kg (275-300); CALCIUM 8.6 mg/dL (8.5-10.1); CARBON DIOXIDE 19.4 mmol/L (21.0-32.0); CHLORIDE - SERUM 103 mmol/L (98-107); CREATININE - SERUM 0.8 mg/dL (0.6-1.3); GLUCOSE 219 mg/dL (74-106); POTASSIUM - SERUM 4.4 mmol/L (3.5-5.1); SODIUM 140 mmol/L (136-145); UREA NITROGEN 15 mg/dL (7-18); eGFR NON AFRICAN AMERICAN 79 mL/min (90-120)
[2018-08-15 09:26] VITALS: BP 125/75
[2018-08-15 10:19] VITALS: BMI 34.2
[2018-08-15 10:23] LABS: CKMB 0.7 U/L (0.0-3.6); CREATINE KINASE 40 UL (21-215); TROPONIN-I < 0.017 ng/mL (0.000-0.060)
[2018-08-15 12:14] VITALS: BP 106/75
[2018-08-15 17:08] LABS: PLT FUNCT.(P2Y12) PLAVIX 135 PRU (194-418)
[2018-08-15 20:00] VITALS: BP 102/67
[2018-08-16] VITALS (7 sets, daily range): BP systolic 109–130; BP diastolic 65–77
[2018-08-16 05:11] LABS: ANION GAP 10.4 mmol/L (8-16); CALCIUM 8.4 mg/dL (8.5-10.1); CREATININE - SERUM 0.9 mg/dL (0.6-1.3); POTASSIUM - SERUM 4.1 mmol/L (3.5-5.1)
[2018-08-16 05:12] LABS: CARBON DIOXIDE 27.7 mmol/L (21.0-32.0)
[2018-08-16 05:16] LABS: BASOPHILS 0.4 % (0-2); EOSINOPHILS 3.9 % (0-7); HEMATOCRIT 41.7 % (36.0-48.0); MCH 29.9 pg (26.0-34.0); MCHC 33.6 g/dL (31.0-37.0); MCV 89.1 fL (80.0-100.0); MEAN PLATELET VOLUME 9.4 fL (7.4-10.4); MONOCYTES 12.5 % (2-11); NEUTROPHILS 43.2 % (40-80); PLATELET COUNT 257 10x3/uL (130-400); RBC 4.68 10x6/uL (4.00-5.40); WBC 5.4 10x3/uL (4.8-10.8)
[2018-08-16 11:10] LABS: HEPATITIS C ANTIBODY <0.1 S/CO RAT (0.0-0.9)
[2018-08-16 13:29] LABS: UDS - AMPHET NEGATIVE QUAL (NEGATIVE); UDS - BARB NEGATIVE QUAL (NEGATIVE); UDS - BENZO POSITIVE QUAL (NEGATIVE); UDS - COCAINE NEGATIVE QUAL (NEGATIVE); UDS - OPIATE NEGATIVE QUAL (NEGATIVE); UDS - PCP NEGATIVE QUAL (NEGATIVE); UDS - THC NEGATIVE QUAL (NEGATIVE)
[2018-08-16 13:48] LABS: APPEARANCE HAZY (CLEAR); COLOR YELLOW (YELLOW)
[2018-08-16 13:49] LABS: BILIRUBIN NEGATIVE (NEGATIVE); GLUCOSE 1000 mg/dL (NEGATIVE); KETONE NEGATIVE (NEGATIVE); NITRITE NEGATIVE (NEGATIVE); PROTEIN NEGATIVE (NEGATIVE); SPECIFIC GRAVITY 1.015 (1.005-1.020); UROBILINOGEN NORMAL (NORMAL)
[2018-08-16 13:51] LABS: AMORPHOUS SEDIMENT <1+ /lpf (NONE SEEN); BACTERIA MANY /hpf (NONE SEEN); EPITHELIAL CELLS 0-5 /hpf (0-5); MUCUS <1+ /lpf (NONE SEEN); RED CELLS - URINE OCC /hpf (0-5)
[2018-08-17 03:55] VITALS: BP 111/69
[2018-08-17 05:43] LABS: BASOPHILS 0.5 % (0-2); EOSINOPHILS 3.5 % (0-7); HEMATOCRIT 39.6 % (36.0-48.0); HEMOGLOBIN 13.3 g/dL (12-16); IMMATURE GRANULOCYTES 0.2 % (0-5); LYMPHOCYTES 43.9 % (15-50); MCH 29.6 pg (26.0-34.0); MCHC 33.6 g/dL (31.0-37.0); MCV 88.2 fL (80.0-100.0); MEAN PLATELET VOLUME 9.4 fL (7.4-10.4); MONOCYTES 14.1 % (2-11); NEUTROPHILS 37.8 % (40-80); PLATELET COUNT 246 10x3/uL (130-400); RBC 4.49 10x6/uL (4.00-5.40); RDW 11.9 % (11.5-14.5); WBC 6.2 10x3/uL (4.8-10.8)
[2018-08-17 06:42] LABS: CALC OSMOLALITY 284 mosm/kg (275-300); CALCIUM 8.5 mg/dL (8.5-10.1); CARBON DIOXIDE 25.9 mmol/L (21.0-32.0); CHLORIDE - SERUM 105 mmol/L (98-107); GLUCOSE 161 mg/dL (74-106); POTASSIUM - SERUM 3.9 mmol/L (3.5-5.1); SODIUM 141 mmol/L (136-145); UREA NITROGEN 15 mg/dL (7-18)
[2018-08-17 06:44] LABS: CREATININE - SERUM 0.5 mg/dL (0.6-1.3); eGFR NON AFRICAN AMERICAN > 90 mL/min (90-120)
[2018-08-17 08:16] VITALS: BP 128/65
[2018-08-17 11:21] VITALS: BP 131/68
[2018-08-17 15:55] VITALS: BP 126/71
[2018-08-17 17:52] LABS: APPEARANCE CLOUDY (CLEAR); BILIRUBIN NEGATIVE (NEGATIVE); COLOR YELLOW (YELLOW); GLUCOSE 500 mg/dL (NEGATIVE); KETONE NEGATIVE (NEGATIVE); NITRITE NEGATIVE (NEGATIVE); PROTEIN NEGATIVE (NEGATIVE); UROBILINOGEN NORMAL (NORMAL)
[2018-08-17 17:54] LABS: BACTERIA FEW /hpf (NONE SEEN); EPITHELIAL CELLS 0-5 /hpf (0-5); RED CELLS - URINE OCC /hpf (0-5); WHITE CELLS - URINE 0-5 /hpf (0-5); YEAST OCC /hpf (NONE SEEN)
[2018-08-17 20:30] VITALS: BP 111/69
[2018-08-18 00:30] VITALS: BP 118/71
[2018-08-18 04:30] VITALS: BP 100/55
[2018-08-18 05:01] LABS: BASOPHILS 0.4 % (0-2); EOSINOPHILS 3.8 % (0-7); HEMATOCRIT 40.7 % (36.0-48.0); HEMOGLOBIN 13.6 g/dL (12-16); LYMPHOCYTES 44.8 % (15-50); MCH 29.4 pg (26.0-34.0); MCHC 33.4 g/dL (31.0-37.0); MCV 88.1 fL (80.0-100.0); MEAN PLATELET VOLUME 9.3 fL (7.4-10.4); MONOCYTES 12.3 % (2-11); NEUTROPHILS 38.7 % (40-80); PLATELET COUNT 264 10x3/uL (130-400); RBC 4.62 10x6/uL (4.00-5.40); RDW 11.9 % (11.5-14.5); WBC 5.2 10x3/uL (4.8-10.8)
[2018-08-18 05:15] LABS: CALC OSMOLALITY 286 mosm/kg (275-300); CALCIUM 8.4 mg/dL (8.5-10.1); CARBON DIOXIDE 30.1 mmol/L (21.0-32.0); CHLORIDE - SERUM 104 mmol/L (98-107); CREATININE - SERUM 0.6 mg/dL (0.6-1.3); GLUCOSE 166 mg/dL (74-106); POTASSIUM - SERUM 3.8 mmol/L (3.5-5.1); SODIUM 142 mmol/L (136-145); UREA NITROGEN 13 mg/dL (7-18); eGFR NON AFRICAN AMERICAN > 90 mL/min (90-120)
[2018-08-18 05:38] LABS: PLT FUNCT.(P2Y12) PLAVIX 224 PRU (194-418)
[2018-08-18 07:47] VITALS: BP 118/70
[2018-08-18 11:21] VITALS: BP 122/78
[2018-08-18 15:09] VITALS: BP 109/69
[2018-08-18 20:00] VITALS: BP 134/95
[2018-08-19 00:29] VITALS: BP 122/74
[2018-08-19 04:48] VITALS: BP 104/68
[2018-08-19 05:07] LABS: BASOPHILS 0.3 % (0-2); EOSINOPHILS 2.6 % (0-7); HEMATOCRIT 39.7 % (36.0-48.0); HEMOGLOBIN 13.6 g/dL (12-16); MCH 30.1 pg (26.0-34.0); MCHC 34.3 g/dL (31.0-37.0); MCV 87.8 fL (80.0-100.0); MEAN PLATELET VOLUME 9.7 fL (7.4-10.4); MONOCYTES 11.4 % (2-11); NEUTROPHILS 39.7 % (40-80); PLATELET COUNT 284 10x3/uL (130-400); RBC 4.52 10x6/uL (4.00-5.40); WBC 5.8 10x3/uL (4.8-10.8)
[2018-08-19 05:39] LABS: PROTIME 12.7 SECONDS (11.6-15.0)
[2018-08-19 05:40] LABS: APTT 34.2 SECONDS (22.8-39.4)
[2018-08-19 06:03] LABS: ALBUMIN 3.3 g/dL (3.4-5.0); ALKALINE PHOSPHATASE 72 U/L (46-116); ALT (SGPT) 50 U/L (10-68); BILIRUBIN - TOTAL 0.59 mg/dL (0.2-1.3); CALCIUM 8.5 mg/dL (8.5-10.1); CARBON DIOXIDE 25.3 mmol/L (21.0-32.0); CHLORIDE - SERUM 104 mmol/L (98-107); CHOLESTEROL, TOTAL 213 mg/dL (0-200); CREATININE - SERUM 0.6 mg/dL (0.6-1.3); PHOSPHOROUS 3.7 mg/dL (2.5-4.9); POTASSIUM - SERUM 3.7 mmol/L (3.5-5.1); SODIUM 141 mmol/L (136-145); T4 THYROXIN - FREE 1.09 ng/dL (0.76-1.46); THYROID STIMULATING HORMONE 1.88 uIU/mL (0.36-3.74); URIC ACID 3.7 mg/dL (2.6-7.2); eGFR NON AFRICAN AMERICAN > 90 mL/min (90-120)
[2018-08-19 06:11] LABS: CALC OSMOLALITY 289 mosm/kg (275-300); GLUCOSE 226 mg/dL (74-106); UREA NITROGEN 19 mg/dL (7-18)
[2018-08-19 08:25] VITALS: BP 126/82
[2018-08-19 12:13] VITALS: BP 114/72
[2018-08-19 16:00] VITALS: BP 142/80
[2018-08-19 20:25] VITALS: BP 123/72
[2018-08-20] VITALS: BP 130/76
[2018-08-20 04:00] VITALS: BP 121/76
[2018-08-20 04:49] LABS: BASOPHILS 0.4 % (0-2); EOSINOPHILS 3.3 % (0-7); HEMATOCRIT 38.9 % (36.0-48.0); HEMOGLOBIN 13.1 g/dL (12-16); IMMATURE GRANULOCYTES 0.2 % (0-5); LYMPHOCYTES 44.5 % (15-50); MCH 29.7 pg (26.0-34.0); MCHC 33.7 g/dL (31.0-37.0); MCV 88.2 fL (80.0-100.0); MEAN PLATELET VOLUME 9.6 fL (7.4-10.4); MONOCYTES 9.8 % (2-11); NEUTROPHILS 41.8 % (40-80); PLATELET COUNT 269 10x3/uL (130-400); RBC 4.41 10x6/uL (4.00-5.40); RDW 11.9 % (11.5-14.5); WBC 5.4 10x3/uL (4.8-10.8)
[2018-08-20 05:07] LABS: CALC OSMOLALITY 285 mosm/kg (275-300); CALCIUM 8.5 mg/dL (8.5-10.1); CARBON DIOXIDE 27.3 mmol/L (21.0-32.0); CHLORIDE - SERUM 106 mmol/L (98-107); CREATININE - SERUM 0.7 mg/dL (0.6-1.3); POTASSIUM - SERUM 3.7 mmol/L (3.5-5.1); SODIUM 141 mmol/L (136-145); UREA NITROGEN 17 mg/dL (7-18); eGFR NON AFRICAN AMERICAN > 90 mL/min (90-120)
[2018-08-20 05:12] LABS: GLUCOSE 144 mg/dL (74-106)
[2018-08-20 08:19] VITALS: BP 102/75
[2018-08-20 12:25] VITALS: BP 116/77
[2018-08-20 16:05] VITALS: BP 115/70
[2018-08-20 20:27] VITALS: BP 129/81
[2018-08-21] VITALS (42 sets, daily range): BP systolic 91–130; BP diastolic 49–81; Ht 165.1 cm; Wt 91.8 kg
[2018-08-22] VITALS (37 sets, daily range): BP systolic 94–150; BP diastolic 55–87
[2018-08-22 06:28] LABS: HEMATOCRIT 35.7 % (36.0-48.0); HEMOGLOBIN 11.8 g/dL (12-16); MCH 29.6 pg (26.0-34.0); MCHC 33.1 g/dL (31.0-37.0); MCV 89.5 fL (80.0-100.0); MEAN PLATELET VOLUME 9.6 fL (7.4-10.4); RBC 3.99 10x6/uL (4.00-5.40); RDW 12.3 % (11.5-14.5); WBC 14.3 10x3/uL (4.8-10.8)
[2018-08-22 06:40] LABS: ALBUMIN 3.1 g/dL (3.4-5.0); ALKALINE PHOSPHATASE 57 U/L (46-116); ALT (SGPT) 63 U/L (10-68); BILIRUBIN - TOTAL 1.06 mg/dL (0.2-1.3); CALC OSMOLALITY 286 mosm/kg (275-300); CALCIUM 7.8 mg/dL (8.5-10.1); CARBON DIOXIDE 24.5 mmol/L (21.0-32.0); CHLORIDE - SERUM 106 mmol/L (98-107); CREATININE - SERUM 0.7 mg/dL (0.6-1.3); GLUCOSE 180 mg/dL (74-106); POTASSIUM - SERUM 4.1 mmol/L (3.5-5.1); PROTEIN - SERUM 6.2 g/dL (6.4-8.2); SODIUM 141 mmol/L (136-145); UREA NITROGEN 16 mg/dL (7-18); eGFR NON AFRICAN AMERICAN > 90 mL/min (90-120)
--- NOTE | 2018-08-22 13:37 | TEE ---
PATIENT:MOHINI WOO MEDICAL RECORD: [id number] LOCATION:[place] [address] AGE OF PATIENT: 53 ADMISSION DATE: 08/18/18 SEX: F REFERRING PHYSICIAN: INTERPRETING PHYSICIAN: DARLINE CHEN MD TRANSESOPHAGEAL ECHOCARDIOGRAM Date: 08/21/18 ANGEL CHARGE Y INDICATIONS: CABG PREMEDICATIONS: PATIENT'S RESPONSE PROCEDURE DOPPLER MEASUREMENTS: LVIT LA PA RA LVOT RVOT Asc. Ao AV Gradient Peak AV Mean AV Area MV Gradient Peak MV Mean MV Area INTERPRETATION: Doppler: 2-D: EF 60% COLOR FLOW DOPPLER TRACES OF MR/TR NORMAL SALINE STUDY: MISCELLANOUS: DIAGNOSIS: PLAN: Co Supervisor Grounds And Landscape:3 Dr. Merlos Management Retail Intern: Brandon DELANEY COMMENTS: WYATT PATIENT DATE OF SERVICE: 08/21/2018 PROCEDURE: Transesophageal echo evaluation of valvular structures during bypass surgery. FINDINGS: 1. Left ventricular chamber size is within normal limits. Left ventricular systolic function is normal. Overall ejection fraction estimated at 60%. 2. Left atrium, right atrium, and right ventricle chamber sizes are within TRANSESOPHAGEAL ECHOCARDIOGRAM REPORT [id number] MOHINI WOO normal limits. 3. Valvular structures have normal structure and motion. 4. Doppler interrogation reveals trace mitral regurgitation, trace tricuspid regurgitation, no other valvular insufficiency or stenosis. 5. No evidence of pericardial effusion or left ventricular thrombus. TRANSINT:[id number] Voice Confirmation ID: [id number] DOCUMENT ID: [id number] at 1337 CC: [id number] DICTATION DATE: 08/21/18 1847 MEDICAL UNDERWRITER: 08/22/18 0244 ADM IN [place] [address] [place] [address]
[2018-08-23] VITALS (24 sets, daily range): BP systolic 92–138; BP diastolic 45–97
[2018-08-23 05:45] LABS: HEMATOCRIT 33.8 % (36.0-48.0); HEMOGLOBIN 10.9 g/dL (12-16); MCH 29.5 pg (26.0-34.0); MCHC 32.2 g/dL (31.0-37.0); MCV 91.6 fL (80.0-100.0); MEAN PLATELET VOLUME 9.5 fL (7.4-10.4); RBC 3.69 10x6/uL (4.00-5.40); RDW 12.7 % (11.5-14.5); WBC 13.2 10x3/uL (4.8-10.8)
[2018-08-23 05:59] LABS: CALC OSMOLALITY 274 mosm/kg (275-300); CALCIUM 8.2 mg/dL (8.5-10.1); CARBON DIOXIDE 27.4 mmol/L (21.0-32.0); CHLORIDE - SERUM 102 mmol/L (98-107); GLUCOSE 149 mg/dL (74-106); POTASSIUM - SERUM 3.8 mmol/L (3.5-5.1); SODIUM 136 mmol/L (136-145); UREA NITROGEN 13 mg/dL (7-18)
[2018-08-23 06:01] LABS: CREATININE - SERUM 0.5 mg/dL (0.6-1.3); eGFR NON AFRICAN AMERICAN > 90 mL/min (90-120)
--- NOTE | 2018-08-23 11:01 | OP ---
PATIENT NAME: MOHINI WOO MEDICAL RECORD: [id number] :63 [facility] ADMISSION DATE:08/18/18 SURGEON: CATRACHO SCHNEIDER MD DATE OF OPERATION: 08/21/2018 SURGEON: Catracho Schneider MD BOAT PILOT: Akil Pagan MD OPERATION PERFORMED: Coronary artery bypass graft times 3 (left internal mammary artery to LAD, reverse saphenous vein graft from aorta to obtuse marginal and aorta to posterior descending artery). PREOPERATIVE DIAGNOSES: Coronary artery disease with unstable angina, in-stent restenosis. POSTOPERATIVE DIAGNOSES: Coronary artery disease with unstable angina, in-stent restenosis. ANESTHESIA: General endotracheal anesthesia. ESTIMATED BLOOD LOSS: Total cardiopulmonary bypass with Cell Saver transfusion. COMPLICATIONS: None. SPECIMENS: Mediastinal lymph node for permanent specimen. CONDITION: Stable. DISPOSITION: CV ICU. OPERATIVE FINDINGS: 1. Transesophageal echocardiography revealed normal contractility. No aortic insufficiency or stenosis. Trace mitral and tricuspid regurgitation. 2. Good quality greater saphenous vein harvest of the right lower extremity about 4-mm, which was larger than it was with 2-3 mm noted on the vein mapping. 3. Good quality left internal mammary artery. The LAD was a 1.75-mm vessel. 4. Obtuse marginal had calcification prior to the bifurcation. The proximal branch was larger of the 2 branches and was a 2.0-mm vessel without significant distal disease. The smaller portion of the saphenous vein from around the knee was used for this graft. 5. The right coronary artery was calcified in the mid vessel. The more distal vessel just at the origin of the PDA was a 2.0-mm vessel. 6. Separation from cardiopulmonary bypass without vasopressor. OPERATIVE INDICATION: Coronary artery disease with unstable angina. DESCRIPTION OF PROCEDURE: The patient was brought to the operative suite. General anesthesia was obtained, the patient was prepped and draped. Greater saphenous vein was harvested from the right lower extremity utilizing bridging incision. Side branches were clipped. Vessel ligated proximally and distally removed. Vessel was inspected for leak. Side branches were oversewn and clipped. Later, the leg was closed in 2 layers including clips and wrapped with an elastic wrap. OPERATIVE REPORT [id number] MOHINI WOO Median sternotomy incision was made. The subcutaneous tissue was divided by electrocautery. The sternum was divided with a saw. Left hemisternum was elevated. Left pleural cavity was entered. Left internal mammary artery and vein was taken down as a pedicle graft. Sternal retractor was placed. Pericardium was opened. Right pleural cavity also had been opened on opening the chest. Heparin was given. Aorta was cannulated. Dual-stage venous cannula was inserted. The internal mammary was clipped distally and made ready for anastomosis. Activated clotting time was appropriately elevated. The patient was placed on cardiopulmonary bypass. Sites for distal anastomoses were selected. The aortic vent site was placed. The patient's temperature was allowed to drift to 34 degrees. Crossclamp was placed. Cardioplegia was given antegrade and this was repeated at 15-minute intervals including down the completed vein grafts. Distal anastomoses were performed in standard technique. Proximal anastomosis with single cross-clamp technique. With the patient in Trendelenburg position, the aortic crossclamp was removed. The aortic root was de-aired. Proximal anastomosis tied down. Vein grafts de-aired and flow was restored. Proximal and distal anastomotic sites were inspected for bleeding. The patient resumed spontaneous rhythm. The patient fully rewarmed, weaned for cardiopulmonary bypass and was stable. The patient was decannulated. Aortic cannulation site was oversewn with a pledgeted Prolene suture. Thorough irrigation was undertaken and all grafts lay appropriately. Hemostasis was assured. Drains placed in the mediastinum, left and right pleural cavities. The pericardial fat was approximated after placing the temporary pacing wires. Left chest was evacuated and irrigated. The internal mammary harvest site was without bleeding. Sternum was closed with wires. Fascia was closed. Subcutaneous tissue was closed. Skin was closed. Dermabond was placed. The needle and sponge counts reported as correct. The patient was taken to ICU in stable condition. TRANSINT:[id number] Voice Confirmation ID: [id number] DOCUMENT ID: [id number] CATRACHO SCHNEIDER MD at 1101 CC: AICHA ARELLANO M.D. and STEFFI SANTOS MD [id number] DICTATION DATE: 08/21/18 1323 LOG ROLLER: 08/21/18 1408 ADM IN [facility] [address] [place] [address]
[2018-08-24] VITALS (24 sets, daily range): BP systolic 96–146; BP diastolic 52–85
[2018-08-24 05:27] LABS: HEMATOCRIT 30.8 % (36.0-48.0); HEMOGLOBIN 9.9 g/dL (12-16); MCH 29.8 pg (26.0-34.0); MCHC 32.1 g/dL (31.0-37.0); MCV 92.8 fL (80.0-100.0); MEAN PLATELET VOLUME 9.3 fL (7.4-10.4); RBC 3.32 10x6/uL (4.00-5.40); RDW 12.7 % (11.5-14.5)
[2018-08-24 05:32] LABS: WBC 8.5 10x3/uL (4.8-10.8)
[2018-08-24 05:34] LABS: CALC OSMOLALITY 280 mosm/kg (275-300); CALCIUM 8.2 mg/dL (8.5-10.1); CARBON DIOXIDE 28.5 mmol/L (21.0-32.0); CHLORIDE - SERUM 104 mmol/L (98-107); CREATININE - SERUM 0.5 mg/dL (0.6-1.3); GLUCOSE 182 mg/dL (74-106); SODIUM 138 mmol/L (136-145); UREA NITROGEN 13 mg/dL (7-18); eGFR NON AFRICAN AMERICAN > 90 mL/min (90-120)
[2018-08-25] VITALS (22 sets, daily range): BP systolic 104–154; BP diastolic 44–97
[2018-08-25 06:24] LABS: HEMATOCRIT 30.9 % (36.0-48.0); HEMOGLOBIN 9.7 g/dL (12-16); MCHC 31.4 g/dL (31.0-37.0); MCV 92.2 fL (80.0-100.0); MEAN PLATELET VOLUME 9.4 fL (7.4-10.4); RBC 3.35 10x6/uL (4.00-5.40); RDW 12.7 % (11.5-14.5); WBC 7.6 10x3/uL (4.8-10.8)
[2018-08-25 06:28] LABS: CALC OSMOLALITY 281 mosm/kg (275-300); CALCIUM 8.3 mg/dL (8.5-10.1); CARBON DIOXIDE 28.3 mmol/L (21.0-32.0); CHLORIDE - SERUM 104 mmol/L (98-107); CREATININE - SERUM 0.5 mg/dL (0.6-1.3); GLUCOSE 167 mg/dL (74-106); POTASSIUM - SERUM 3.7 mmol/L (3.5-5.1); SODIUM 140 mmol/L (136-145); UREA NITROGEN 11 mg/dL (7-18); eGFR NON AFRICAN AMERICAN > 90 mL/min (90-120)
--- NOTE | 2018-08-25 12:23 | MORECARE ---
CASE MANAGEMENT DISCHARGE SUMMARY PATIENT: MOHINI WOO UNIT: [id number] ADM DATE: 08/18/18 AGE: 53 : 63 SEX: F ROOM/BED: [facility] AUTHOR: SHERRY MAYA PHYSICIAN: REFERRING PHYSICIAN: STEFFI SANTOS MD DATE OF SERVICE: 08/25/18 Discharge Plan Patient Name: MOHINI WOO Facility: [facility]:[place] : 1965 Planned Disposition: Home Anticipated Discharge Date: Discharge Date: Expected LOS: Initial Reviewer: [email or web address] Initial Review Date: 08/25/2018 Generated: 08/25/18 1:23 pm Patient Name: MOHINI WOO Page [id number] at 1223 All edits/amendments must be made on the electronic document DICTATION DATE: 08/25/18 122 PERCH MENDER: COURTNEY 08/25/18 1222 RPT#: [id number] DC DATE: STATUS: ADM IN [facility] [address] [place] [address] END OF REPORT
--- NOTE | 2018-08-25 12:32 | MORECARE ---
CASE MANAGEMENT DISCHARGE SUMMARY PATIENT: MOHINI WOO UNIT: [id number] ADM DATE: 08/18/18 AGE: 53 : 63 SEX: F ROOM[facility]BED: [facility] AUTHOR: ZULMA,DOC PHYSICIAN: REFERRING PHYSICIAN: STEFFI SANTOS MD DATE OF SERVICE: 08/25/18 Discharge Plan Patient Name: MOHINI WOO Facility: [facility]:[place] : 1965 Planned Disposition: Home Anticipated Discharge Date: Discharge Date: Expected LOS: Initial Reviewer: [email or web address] Initial Review Date: 08/25/2018 Generated: 08/25/18 1:31 pm Comments DCP- Discharge Planning Updated by [email or web address]: Jovanna Soria on 08/25/18 11:[address] Patient Name: MOHINI WOO Admission Status: ER Accout number: [id number] Admission Date: 08-18-2018 : 1965 Admission Diagnosis:CHEST PAIN, UNSPECIFIED Attending: STEFFI SANTOS Current LOS: 7 Anticipated DC Date: Planned Disposition: Home Primary Insurance: [employer] POS Discharge Planning Comments: CM met with patient at bedside. Patient plans on returning to her home upon discharge with her spouse. Patient denies any discharge needs at this time. CM will continue to follow and assist with discharge planning / needs. Senior Ui Designer: Jovanna Soria DCPIA - Discharge Planning Initial Assessment Updated by [email or web address]: Jovanna Soria on 08/25/18 12:24 pm * Is the patient Alert and Oriented? Yes * How many steps to enter\exit or inside your home? * PCP [facility] * Pharmacy [facility] * Preadmission Environment Home with Family * ADLs Independent * Equipment None * List name and contact numbers for known caregivers / representatives who currently or will assist patient after discharge: ANG WOO - SPOUSE- [phone] * Verbal permission to speak to the caregivers and representatives has been obtained from the patient. Yes * Community resources currently utilized None * Additional services required to return to the preadmission environment? No * Can the patient safely return to the preadmission environment? Yes * Has this patient been hospitalized within the prior 30 days at any hospital? No Last DP export: 08/25/18 11:23 Patient Name: MOHINI WOO Page 11884 at 1232 All edits/amendments must be made on the electronic document DICTATION DATE: 08/25/18 1231 SPAGHETTI MACHINE OPERATOR: COURTNEY 08/25/18 1231 RPT#: [id number] DC DATE: STATUS: ADM IN [facility] [address] [place] [address] END OF REPORT
[2018-08-26] VITALS (22 sets, daily range): BP systolic 114–151; BP diastolic 54–89
[2018-08-26 05:04] LABS: HEMATOCRIT 33.5 % (36.0-48.0); HEMOGLOBIN 10.8 g/dL (12-16); MCH 29.8 pg (26.0-34.0); MCHC 32.2 g/dL (31.0-37.0); MCV 92.3 fL (80.0-100.0); MEAN PLATELET VOLUME 8.9 fL (7.4-10.4); RBC 3.63 10x6/uL (4.00-5.40); RDW 12.5 % (11.5-14.5); WBC 5.9 10x3/uL (4.8-10.8)
[2018-08-26 05:28] LABS: CALC OSMOLALITY 280 mosm/kg (275-300); CALCIUM 8.7 mg/dL (8.5-10.1); CARBON DIOXIDE 25.8 mmol/L (21.0-32.0); CHLORIDE - SERUM 101 mmol/L (98-107); CREATININE - SERUM 0.6 mg/dL (0.6-1.3); GLUCOSE 186 mg/dL (74-106); POTASSIUM - SERUM 3.7 mmol/L (3.5-5.1); SODIUM 139 mmol/L (136-145); eGFR NON AFRICAN AMERICAN > 90 mL/min (90-120)
[2018-08-26 05:36] LABS: UREA NITROGEN 6 mg/dL (7-18)
--- NOTE | 2018-08-26 11:50 | OP ---
PATIENT NAME: MOHINI WOO MEDICAL RECORD: [id number] :63 LOCATION:[facility] ADMISSION DATE:08/18/18 SURGEON: ORTIZ FIGUEROA MD DATE OF OPERATION: 08/15/2018 PROCEDURE: Left heart catheterization, selective coronary angiography, right radial approach. CATHETERS: A 5-[place] sheath, 5/4 left and right [place], 5/4 pig. The procedure was well tolerated. The patient was returned to [facility]. Sheath was removed. TR band was placed. FINDINGS: Left ventriculography in 30-degree YBARRA view; normal wall motion and normal systolic function. CORONARY ANATOMY: LEFT MAIN: Left main is free of disease. LAD: It has severe diffuse in-stent restenosis of about 90%. CIRCUMFLEX: Before the takeoff of the first OM, it shows a tight stenosis of 90%, again in-stent restenosis. RIGHT CORONARY ARTERY: Approximately 70% proximal stenosis. IMPRESSION: Marked restenosis of both previously placed stents. Given diabetes, etc, probably best served by coronary bypass grafting and CV surgeon consulted for that purpose. TRANSINT:[id number] Voice Confirmation ID: [id number] DOCUMENT ID: [id number] ORTIZ FIGUEROA MD at 1150 CC: [id number] DICTATION DATE: 08/15/18 1428 MEDICAL BILLING CLERK: 08/15/181912 ADM IN [facility] [address] [place] [address]
[2018-08-27] VITALS (7 sets, daily range): BP systolic 121–147; BP diastolic 52–90
[2018-08-27 06:01] LABS: CALC OSMOLALITY 283 mosm/kg (275-300); CALCIUM 8.2 mg/dL (8.5-10.1); CARBON DIOXIDE 26.4 mmol/L (21.0-32.0); CHLORIDE - SERUM 103 mmol/L (98-107); CREATININE - SERUM 0.6 mg/dL (0.6-1.3); GLUCOSE 155 mg/dL (74-106); POTASSIUM - SERUM 3.9 mmol/L (3.5-5.1); SODIUM 142 mmol/L (136-145); UREA NITROGEN 7 mg/dL (7-18); eGFR NON AFRICAN AMERICAN > 90 mL/min (90-120)
[2018-08-27] MEDS ORDERED: TOPROL XL50 MG PO (10:24)
[2018-08-27] MEDS ORDERED: PLAVIX75 MG PO (10:24)
[2018-08-27] MEDS ORDERED: PROTONIX40 MG PO (10:25)
[2018-08-27] MEDS ORDERED: K-DUR20 MEQ PO (10:38)
[2018-08-27] MEDS ORDERED: LASIX40 MG PO (10:38)
--- NOTE | 2018-08-27 11:50 | MORECARE ---
CASE MANAGEMENT DISCHARGE SUMMARY PATIENT: MOHINI WOO UNIT: [id number] ADM DATE: 08/18/18 AGE: 53 : 63 SEX: F ROOM/BED: [facility] AUTHOR: ZULMADOC PHYSICIAN: REFERRING PHYSICIAN: STEFFI SANTOS MD DATE OF SERVICE: 08/27/18 Discharge Plan Patient Name: MOHINI WOO Facility: [facility]:[place] : 1965 Planned Disposition: Home Anticipated Discharge Date: Discharge Date: 08/27/2018 Expected LOS: Initial Reviewer: [email or web address] Initial Review Date: 08/25/2018 Generated: 08/27/18 12:50 pm Comments DCP- Discharge Planning Updated by [email or web address]: Jovanna Soria on 08/27/18 10:[address] Patient Name: MOHINI WOO Encounter No: [id number] : 1965 Primary Insurance: [employer] POS Anticipated DC Date: Planned Disposition: Home External Planned Provider: : DCP follow-up note: Patient and family in agreement with discharge plan. No changes to plan. Case management will follow and assist as needed. Jovanna Soria DCP- Discharge Planning Updated by [email or web address]: Jovanna Soria on 08/25/18 11:[address] Patient Name: MOHINI WOO Admission Status: ER Accout number: [id number] Admission Date: 08-18-2018 : 1965 Admission Diagnosis:CHEST PAIN, UNSPECIFIED Attending: STEFFI SANTOS Current LOS: 7 Anticipated DC Date: Planned Disposition: Home Primary Insurance: [employer] POS Discharge Planning Comments: CM met with patient at bedside. Patient plans on returning to her home upon discharge with her spouse. Patient denies any discharge needs at this time. CM will continue to follow and assist with discharge planning / needs. Forestry Professor: Jovanna Soria DCPIA - Discharge Planning Initial Assessment Updated by [email or web address]: Jovanna Soria on 08/25/18 12:24 pm * Is the patient Alert and Oriented? Yes * How many steps to enter\exit or inside your home? * PCP [facility] * [facility] * Preadmission Environment Home with Family * ADLs Independent * Equipment None * List name and contact numbers for known caregivers / representatives who currently or will assist patient after discharge: ANG WOO - [facility]- [phone] * Verbal permission to speak to the caregivers and representatives has been obtained from the patient. Yes * Community resources currently utilized None * Additional services required to return to the preadmission environment? No * Can the patient safely return to the preadmission environment? Yes * Has this patient been hospitalized within the prior 30 days at any hospital? No Last DP export: 08/25/18 11:32 Patient Name: MOHINI WOO Page [id number] at 1150 All edits/amendments must be made on the electronic document DICTATION DATE: 08/27/18 1149 BLENDING TECHNICIAN: COURTNEY 08/27/18 1149 RPT#: [id number] DC DATE:08/27/18 STATUS: DIS IN [facility] [address] [place] [address] END OF REPORT
--- NOTE | 2018-08-27 12:19 | MORECARE ---
CASE MANAGEMENT DISCHARGE SUMMARY PATIENT: MOHINI WOO UNIT: [id number] ADM DATE: 08/18/18 AGE: 53 : 63 SEX: F ROOM/BED: [facility] AUTHOR: ZULMADOC PHYSICIAN: REFERRING PHYSICIAN: STEFFI SANTOS MD DATE OF SERVICE: 08/27/18 Discharge Plan Patient Name: MOHINI WOO Facility: [facility]:[place] : 1965 Planned Disposition: Home Anticipated Discharge Date: Discharge Date: 08/27/2018 Expected LOS: Initial Reviewer: [id number] Initial Review Date: 08/25/2018 Generated: 08/27/18 1:19 pm Comments DCP- Discharge Planning Updated by [email or web address]: Jovanna Soria on 08/27/18 10:[address] Patient Name: MOHINI WOO Encounter No: [id number] : 1965 Primary Insurance: [employer] POS Anticipated DC Date: Planned Disposition: Home External Planned Provider: : DCP follow-up note: Patient and family in agreement with discharge plan. No changes to plan. Case management will follow and assist as needed. Jovanna Soria DCP- Discharge Planning Updated by [email or web address]: Jovanna Soria on 08/25/18 11:[address] Patient Name: MOHINI WOO Admission Status: ER Accout number: [id number] Admission Date: 08-18-2018 : 1965 Admission Diagnosis:CHEST PAIN, UNSPECIFIED Attending: STEFFI SANTOS Current LOS: 7 Anticipated DC Date: Planned Disposition: Home Primary Insurance: [employer] POS Discharge Planning Comments: CM met with patient at bedside. Patient plans on returning to her home upon discharge with her spouse. Patient denies any discharge needs at this time. CM will continue to follow and assist with discharge planning / needs. Broom Machine Operator: Jovanna Soria DCPIA - Discharge Planning Initial Assessment Updated by [email or web address]: Jovanna Soria on 08/25/18 12:24 pm * Is the patient Alert and Oriented? Yes * How many steps to enter\exit or inside your home? * PCP [facility] * [facility] * Preadmission Environment Home with Family * ADLs Independent * Equipment None * List name and contact numbers for known caregivers / representatives who currently or will assist patient after discharge: ANG WOO - [facility]- [phone] * Verbal permission to speak to the caregivers and representatives has been obtained from the patient. Yes * Community resources currently utilized None * Additional services required to return to the preadmission environment? No * Can the patient safely return to the preadmission environment? Yes * Has this patient been hospitalized within the prior 30 days at any hospital? No Last DP export: 08/27/18 10:50 am Patient Name: MOHINI WOO Page 33216 at 1219 All edits/amendments must be made on the electronic document DICTATION DATE: 08/27/18 1219 OIL FILTERS INSPECTOR: COURTNEY 08/27/18 1219 RPT#: [id number] DC DATE:08/27/18 STATUS: DIS IN [facility] [address] [place] [address] END OF REPORT
== END 2018-08-27 11:24 | disposition home or self-care (01) | DRG 234 ==
LOC: OBSVTIME → D.ER 19:47 → OBSVTIME 21:45 → D.M2 21:45 → D.CVICU 08-18 09:30 → D.M2 08-18 09:30 → D.CVICU 08-21 08:44
PROVIDERS: Emergency Medicine; Internal Medicine Cardiovascular Disease; Internal Medicine Interventional Cardiology; Thoracic Surgery (Cardiothoracic Vascular Surgery); ADMIT Internal Medicine Nephrology
PROC: B2111ZZ Fluoroscopy of Multiple Coronary Arteries using Low Osmolar Contrast (ICD-10-PCS; 2018-08-15)
PROC: B2151ZZ Fluoroscopy of Left Heart using Low Osmolar Contrast (ICD-10-PCS; 2018-08-15)
PROC: 4A023N7 Measurement of Cardiac Sampling and Pressure, Left Heart, Percutaneous Approach (ICD-10-PCS; 2018-08-15)
PROC: 021109W Bypass Coronary Artery, Two Arteries from Aorta with Autologous Venous Tissue, Open Approach (ICD-10-PCS; 2018-08-21)
PROC: 06BP0ZZ Excision of Right Saphenous Vein, Open Approach (ICD-10-PCS; 2018-08-21)
PROC: 5A1221Z Performance of Cardiac Output, Continuous (ICD-10-PCS; 2018-08-21)
PROC: B245ZZ4 Ultrasonography of Left Heart, Transesophageal (ICD-10-PCS; 2018-08-21)
PROC: 02100Z9 Bypass Coronary Artery, One Artery from Left Internal Mammary, Open Approach (ICD-10-PCS; principal; 2018-08-21 07:30)
DX: I25.110 Atherosclerotic heart disease of native coronary artery with unstable angina pectoris (principal); T82.855A Stenosis of coronary artery stent, initial encounter; N39.0 Urinary tract infection, site not specified; I10 Essential (primary) hypertension; E78.5 Hyperlipidemia, unspecified; K21.9 Gastro-esophageal reflux disease without esophagitis; E11.65 Type 2 diabetes mellitus with hyperglycemia; Y83.8 Other surgical procedures as the cause of abnormal reaction of the patient, or of later complication, without mention of misadventure at the time of the procedure; B96.20 Unspecified Escherichia coli [E. coli] as the cause of diseases classified elsewhere

== ENCOUNTER → 2018-09-10 14:33 | Outpatient (CLI) | payer OTHER ==
[2018-08-21 13:54] VITALS: BMI 36.0
[~2018-09-10 14:33] MED LIST changes: +K-DUR20 MEQ PO; +LASIX40 MG PO; +PROTONIX40 MG PO; +TOPROL XL50 MG PO
[2018-09-10 15:42] LABS: HEMATOCRIT 36.3 % (36.0-48.0); HEMOGLOBIN 11.9 g/dL (12-16); MCH 28.5 pg (26.0-34.0); MCHC 32.8 g/dL (31.0-37.0); MCV 87.1 fL (80.0-100.0); MEAN PLATELET VOLUME 8.9 fL (7.4-10.4); RBC 4.17 10x6/uL (4.00-5.40); RDW 12.2 % (11.5-14.5); WBC 4.4 10x3/uL (4.8-10.8)
[2018-09-10 15:45] LABS: ALBUMIN 3.2 g/dL (3.4-5.0); ALKALINE PHOSPHATASE 102 U/L (46-116); ALT (SGPT) 23 U/L (10-68); BILIRUBIN - TOTAL 0.54 mg/dL (0.2-1.3); CALC OSMOLALITY 287 mosm/kg (275-300); CALCIUM 8.3 mg/dL (8.5-10.1); CARBON DIOXIDE 25.2 mmol/L (21.0-32.0); CHLORIDE - SERUM 102 mmol/L (98-107); CREATININE - SERUM 0.7 mg/dL (0.6-1.3); POTASSIUM - SERUM 4.2 mmol/L (3.5-5.1); PROTEIN - SERUM 7.1 g/dL (6.4-8.2); SODIUM 138 mmol/L (136-145); UREA NITROGEN 11 mg/dL (7-18); eGFR NON AFRICAN AMERICAN > 90 mL/min (90-120)
[2018-09-10 15:46] LABS: GLUCOSE 337 mg/dL (74-106)
== END | disposition home or self-care (01) ==
LOC: D.RAD 14:33
PROVIDERS: Thoracic Surgery (Cardiothoracic Vascular Surgery)
DX: J90 Pleural effusion, not elsewhere classified (principal); D64.9 Anemia, unspecified

== ENCOUNTER 2019-01-13 13:08 | Observation (INO) | payer OTHER ==
[~2019-01-13] VITALS: Ht 165.1 cm; Wt 93.2 kg
[2019-01-13] MEDS ORDERED: ALBUTEROL SULF8.5 GM (13:37)
[2019-01-13] MEDS ORDERED: VICTOZA0.6 MG/0.1 (13:38)
--- NOTE | 2019-01-13 13:42 | NUR ---
PT ARRIVES TO ROOM VIA WHEELCHAIR ESCORTED BY HOSPITAL STAFF AND ACCOMPANIED BY SPOUSE. PT DENIES PRESENCE OF PAIN AND REPORTS FREQUENT UNCONTROLLABLE EMESIS DESCRIBED YELLOW IN COLOR. PT DENIES HAVING ATE TODAY. PT IS AMBULATORY AND DENIES PRESENCE OF LIGHTHEADEDNESS/DIZZINESS UPON STANDING. BED IS IN THE LOWEST POSITION. CALL LIGHT AND BEDSIDE TABLE ARE WITHIN REACH. SIDE RAILS X 2. PT DENIES FURTHER NEEDS AT THIS TIME. WILL CONT TO MONITOR.
--- NOTE | 2019-01-13 14:20 | NUR ---
20G PIV TO LEFT HAND X 1 ATTEMPT. PT TOLERATED WELL. BED IS IN THE LOWEST POSITION. CALL LIGHT AND BEDSIDE TABLE ARE WITHIN REACH. SIDE RAILS X 2. PT DENIES FURTHER NEEDS AT THIS TIME. WILL CONT TO MONITOR.
[2019-01-13 14:26] VITALS: BP 112/78; Ht 165.1 cm; Wt 93.2 kg
[2019-01-13 16:01] LABS: ALBUMIN 3.5 g/dL (3.4-5.0); ALKALINE PHOSPHATASE 73 U/L (46-116); ALT (SGPT) 27 U/L (10-68); AMYLASE - SERUM 61 U/L (25-115); BILIRUBIN - TOTAL 1.37 mg/dL (0.2-1.3); CALC OSMOLALITY 283 mosm/kg (275-300); CALCIUM 8.2 mg/dL (8.5-10.1); CARBON DIOXIDE 24.9 mmol/L (21.0-32.0); CHLORIDE - SERUM 104 mmol/L (98-107); CREATININE - SERUM 0.6 mg/dL (0.6-1.3); LIPASE 223 U/L (73-393); POTASSIUM - SERUM 3.6 mmol/L (3.5-5.1); PROTEIN - SERUM 7.1 g/dL (6.4-8.2); SODIUM 139 mmol/L (136-145); UREA NITROGEN 16 mg/dL (7-18); eGFR NON AFRICAN AMERICAN > 90 mL/min (90-120)
[2019-01-13 16:02] LABS: GLUCOSE 189 mg/dL (74-106)
[2019-01-13 16:14] LABS: BASOPHILS 0.1 % (0-2); HEMATOCRIT 38.1 % (36.0-48.0); HEMOGLOBIN 12.7 g/dL (12-16); IMMATURE GRANULOCYTES 0.1 % (0-5); LYMPHOCYTES 10.8 % (15-50); MCH 27.6 pg (26.0-34.0); MCHC 33.3 g/dL (31.0-37.0); MCV 82.8 fL (80.0-100.0); MEAN PLATELET VOLUME 9.4 fL (7.4-10.4); MONOCYTES 6.6 % (2-11); NEUTROPHILS 81.4 % (40-80); RDW 13.7 % (11.5-14.5); WBC 8.1 10x3/uL (4.8-10.8)
[2019-01-13 16:22] LABS: PLATELET COUNT 310 10x3/uL (130-400)
[2019-01-13 16:26] LABS: APPEARANCE CLEAR (CLEAR); BILIRUBIN NEGATIVE (NEGATIVE); COLOR YELLOW (YELLOW); GLUCOSE 250 mg/dL (NEGATIVE); KETONE SMALL mg/dL (NEGATIVE); NITRITE POSITIVE (NEGATIVE); PROTEIN NEGATIVE (NEGATIVE); SPECIFIC GRAVITY 1.015 (1.005-1.020); UROBILINOGEN NORMAL (NORMAL)
[2019-01-13 16:27] LABS: BACTERIA MANY /hpf (NONE SEEN); EPITHELIAL CELLS 0-5 /hpf (0-5); RED CELLS - URINE 0-5 /hpf (0-5)
[2019-01-13 16:44] VITALS: BP 106/67
--- NOTE | 2019-01-13 16:51 | NUR ---
PT REFUSES SCDS
--- NOTE | 2019-01-13 20:00 | NUR ---
ALERT RESTING IN BED, REPORTS N/V BETTER SINCE GETTING ZOFRAN, DENIES PAIN OR NEEDS AT THIS TIME, SEE SHIFT ASSESSMENT, CALL LIGHT IN REACH
[2019-01-13 20:57] VITALS: BP 111/74
[2019-01-14 01:42] VITALS: BP 99/69
[2019-01-14 05:00] LABS: BASOPHILS 0.2 % (0-2); EOSINOPHILS 1.3 % (0-7); HEMATOCRIT 35.7 % (36.0-48.0); HEMOGLOBIN 11.8 g/dL (12-16); LYMPHOCYTES 22.2 % (15-50); MCH 27.6 pg (26.0-34.0); MCHC 33.1 g/dL (31.0-37.0); MCV 83.6 fL (80.0-100.0); MEAN PLATELET VOLUME 9.2 fL (7.4-10.4); MONOCYTES 10.7 % (2-11); NEUTROPHILS 65.6 % (40-80); PLATELET COUNT 279 10x3/uL (130-400); RBC 4.27 10x6/uL (4.00-5.40); RDW 13.9 % (11.5-14.5)
[2019-01-14 05:05] LABS: WBC 4.6 10x3/uL (4.8-10.8)
[2019-01-14 05:19] LABS: ALBUMIN 2.9 g/dL (3.4-5.0); ALKALINE PHOSPHATASE 63 U/L (46-116); ALT (SGPT) 24 U/L (10-68); BILIRUBIN - TOTAL 1.56 mg/dL (0.2-1.3); CALC OSMOLALITY 279 mosm/kg (275-300); CALCIUM 7.8 mg/dL (8.5-10.1); CARBON DIOXIDE 24.3 mmol/L (21.0-32.0); CHLORIDE - SERUM 107 mmol/L (98-107); CREATININE - SERUM 0.6 mg/dL (0.6-1.3); POTASSIUM - SERUM 3.4 mmol/L (3.5-5.1); SODIUM 139 mmol/L (136-145); UREA NITROGEN 13 mg/dL (7-18); eGFR NON AFRICAN AMERICAN > 90 mL/min (90-120)
[2019-01-14 05:24] VITALS: BP 107/59
[2019-01-14 05:26] LABS: GLUCOSE 132 mg/dL (74-106)
--- NOTE | 2019-01-14 07:38 | NUR ---
AWAKE AND ALERT. ORIENTED X3. NO C/O AT THIS TIME. UP TO SINK PERFORMING ADL'S. LUNGS WITH FAINT WHEEZES NOTED TO RIGHT SIDE MOSTLY. NON PRODUCTIVE COUGH NOTED. SKIN IS INTACT WITHOUT REDNESS. IV TO LEFT HAND IS PATENT WITHOUT REDNESS AT INSERTION SITE. DENIES NEEDS.
[2019-01-14 08:56] VITALS: BP 103/69
--- NOTE | 2019-01-14 10:08 | NUR ---
TOOK AM MEDS WITHOUT DIFFICULTY. ATE ALL OF BREAKFAST. NO C/O PAIN OR NAUSEA WITH FOOD.
[2019-01-14] MEDS ORDERED: LEVOFLOXACIN500 MG PO (10:56)
[2019-01-14] MEDS ORDERED: CELEXA20 MG PO (10:58)
--- NOTE | 2019-01-14 11:50 | NUR ---
FSBS 244. GIVNE 4 UNITS REGULAR SUBQ PER SS.
--- NOTE | 2019-01-14 12:56 | NUR ---
SITTING UP IN CHIAR AT BEDSIDE EATING LUNCH. DISCHARGE INSTRUCTIONS GIVEN BOTH VERBALLY AND WRITTEN. ALL QUESTIONS ANSWERED. PATIENT VERBALIZED UNDERSTANDING OF SAME. IV TO LEFT HAND D/C WITH CATHETER INTACT. WAITING ON RIDE TO D/C HOME.
== END 2019-01-14 13:00 | disposition home or self-care (01) ==
LOC: D.SDCHOLD 13:08 → D.MS 13:13 → OBSVTIME 13:13 → D.MS 13:13
PROVIDERS: ADMIT Family Medicine; ATTEND Family Medicine
DX: N39.0 Urinary tract infection, site not specified (principal); E87.6 Hypokalemia; I10 Essential (primary) hypertension; E11.9 Type 2 diabetes mellitus without complications; I25.10 Atherosclerotic heart disease of native coronary artery without angina pectoris; I48.91 Unspecified atrial fibrillation

== ENCOUNTER 2019-03-06 23:20 | Observation (INO) | payer OTHER ==
[~2019-03-06] VITALS: Ht 165.1 cm; Wt 93.1 kg
[~2019-03-06 23:20] MED LIST changes: +ALBUTEROL SULF8.5 GM; +CELEXA20 MG PO; +LEVOFLOXACIN500 MG PO; +VICTOZA0.6 MG/0.1 SQ
[2019-03-06 23:43] LABS: BASOPHILS 0.3 % (0-2); EOSINOPHILS 2.8 % (0-7); HEMATOCRIT 35.3 % (36.0-48.0); HEMOGLOBIN 11.8 g/dL (12-16); LYMPHOCYTES 38.2 % (15-50); MCH 28.1 pg (26.0-34.0); MCHC 33.4 g/dL (31.0-37.0); MEAN PLATELET VOLUME 9.1 fL (7.4-10.4); MONOCYTES 9.9 % (2-11); NEUTROPHILS 48.8 % (40-80); PLATELET COUNT 282 10x3/uL (130-400); RDW 13.4 % (11.5-14.5); WBC 6.1 10x3/uL (4.8-10.8)
[2019-03-06 23:54] LABS: ALBUMIN 3.6 g/dL (3.4-5.0); ALKALINE PHOSPHATASE 73 U/L (46-116); ALT (SGPT) 26 U/L (10-68); BILIRUBIN - TOTAL 0.81 mg/dL (0.2-1.3); CALC OSMOLALITY 287 mosm/kg (275-300); CALCIUM 8.5 mg/dL (8.5-10.1); CHLORIDE - SERUM 103 mmol/L (98-107); CREATININE - SERUM 0.8 mg/dL (0.6-1.3); POTASSIUM - SERUM 3.8 mmol/L (3.5-5.1); PROTEIN - SERUM 7.1 g/dL (6.4-8.2); SODIUM 138 mmol/L (136-145); UREA NITROGEN 26 mg/dL (7-18); eGFR NON AFRICAN AMERICAN 79 mL/min (90-120)
[2019-03-06 23:57] LABS: GLUCOSE 230 mg/dL (74-106)
[2019-03-07 00:06] LABS: CKMB 0.8 U/L (0.0-3.6); CREATINE KINASE 109 UL (21-215); TROPONIN-I < 0.017 ng/mL (0.000-0.060)
--- NOTE | 2019-03-07 01:30 | NUR ---
PT ADMIT TO ROOM 2117 FROM ER. ALERT/ORIENTED. SR PER TELEMETRY. ADMISSION ASSESSMENT AND HISTORY COMPLETED. INSTRUCTED ON NPO UNTIL SEEN BY HOSPICE RN IN AM. PLAN OF CARE/INTERVENTIONS INITIATED.
[2019-03-07 02:55] VITALS: BP 138/78; BMI 34.1
[2019-03-07 04:00] VITALS: BP 120/79
[2019-03-07 08:02] VITALS: Ht 165.1 cm; Wt 93.1 kg
[2019-03-07 09:31] VITALS: BP 119/74
--- NOTE | 2019-03-07 11:47 | NUR ---
FSBS 240 HUMALOG 4 UNITS GIVEN SQ ABDOMEN
[2019-03-07 13:21] LABS: % SATURATION 13 % (15-55); IRON 44 ug/dl (35-150); TOTAL IRON BIND CAPACITY 330 ug/dl (260-445); UNSAT IRON BIND CAPACITY 286 ug/dl (150-375)
[2019-03-07] MEDS ORDERED: ISOSORBIDE MONO30 M1 PO (16:29)
--- NOTE | 2019-03-07 17:55 | NUR ---
REVIEWED DISCHARGE INSTRUCTIONS PT STATES UNDERSTANDING COPY GIVEN SALINE LOCK DCD WITH IV CATHETER INTACT SITE FREE OF REDNESS OR EDEMA PT DISCHARGED HOME LEFT UNIT VIA W/C IN STABLE CONDITION WITH ALL PERSONAL BELONGINGS
--- NOTE | 2019-03-09 08:53 | MORECARE ---
CASE MANAGEMENT DISCHARGE SUMMARY PATIENT: MOHINI WOO UNIT: [id number] ADM DATE: 03/06/19 AGE: 53 : 63 SEX: F ROOM/BED: D.2117 AUTHOR: SHERRY MAYA PHYSICIAN: REFERRING PHYSICIAN: KHALIDA GIBBS MD DATE OF SERVICE: 03/09/19 Discharge Plan Patient Name: MOHINI WOO Facility: [facility]:[place] : 1965 Planned Disposition: Home Anticipated Discharge Date: 03/07/19 Discharge Date: 03/07/2019 Expected LOS: 1 Initial Reviewer: [email or web address] Initial Review Date: 03/09/2019 Generated: 03/09/19 9:53 am Patient Name: MOHINI WOO Page 93617 at 0853 All edits/amendments must be made on the electronic document DICTATION DATE: 03/09/1952 HISTOLOGY TECHNICIAN: COURTNEY 03/09/19 0852 RPT#: [id number] DC DATE:03/07/19 STATUS: DIS IN [facility] [address] [place] [address] END OF REPORT
== END 2019-03-07 17:55 | disposition home or self-care (01) ==
LOC: D.ER 23:20 → D.M2 23:53 → OBSVTIME 23:53 → D.M2 03-07 17:55
PROVIDERS: Family Medicine; Family Medicine Adult Medicine; ADMIT Family Medicine; ATTEND Family Medicine
DX: I25.110 Atherosclerotic heart disease of native coronary artery with unstable angina pectoris (principal); K21.9 Gastro-esophageal reflux disease without esophagitis; E11.9 Type 2 diabetes mellitus without complications; I10 Essential (primary) hypertension; E78.5 Hyperlipidemia, unspecified; F41.8 Other specified anxiety disorders; D64.9 Anemia, unspecified

== ENCOUNTER → 2019-08-11 09:04 | Outpatient (CLI) | payer OTHER ==
[2019-03-07 08:02] VITALS: BMI 34.1
[~2019-08-11 09:04] MED LIST changes: +ISOSORBIDE MONO30 M1 PO
[2019-08-11 09:36] LABS: BASOPHILS 0.6 % (0-2); EOSINOPHILS 2.3 % (0-7); HEMATOCRIT 39.6 % (36.0-48.0); HEMOGLOBIN 12.7 g/dL (12-16); LYMPHOCYTES 34.1 % (15-50); MCH 28.4 pg (26.0-34.0); MCHC 32.1 g/dL (31.0-37.0); MCV 88.6 fL (80.0-100.0); MONOCYTES 11.8 % (2-11); NEUTROPHILS 51.2 % (40-80); PLATELET COUNT 276 10x3/uL (130-400); RBC 4.47 10x6/uL (4.00-5.40); RDW 12.8 % (11.5-14.5); WBC 5.3 10x3/uL (4.8-10.8)
== END | disposition home or self-care (01) ==
LOC: D.LAB 09:04
PROVIDERS: ATTEND Internal Medicine Gastroenterology
DX: R19.5 Other fecal abnormalities (principal)

== ENCOUNTER 2020-01-25 14:37 | Observation (INO) | payer OTHER ==
[~2020-01-25] VITALS: Ht 165.1 cm; Wt 96.2 kg
[2020-01-25] MEDS ORDERED: NEURONTIN 300300 MG PO (15:21)
[2020-01-25] MEDS ORDERED: CELEXA20 MG PO (15:22)
[2020-01-25] MEDS ORDERED: LIPITOR20 MG PO (15:24)
[2020-01-25 15:36] LABS: INR 0.87 (0.85-1.17); PROTIME 11.8 SECONDS (11.6-15.0)
[2020-01-25 15:37] LABS: APTT 25.9 SECONDS (22.8-39.4)
[2020-01-25 15:39] LABS: BASOPHILS 0.7 % (0-2); EOSINOPHILS 1.8 % (0-7); HEMATOCRIT 39.6 % (36.0-48.0); HEMOGLOBIN 12.8 g/dL (12-16); IMMATURE GRANULOCYTES 0.2 % (0-5); MCH 28.4 pg (26.0-34.0); MCHC 32.3 g/dL (31.0-37.0); MEAN PLATELET VOLUME 9.5 fL (7.4-10.4); MONOCYTES 9.4 % (2-11); NEUTROPHILS 53.9 % (40-80); PLATELET COUNT 289 10x3/uL (130-400); RDW 12.8 % (11.5-14.5); WBC 4.5 10x3/uL (4.8-10.8)
[2020-01-25 15:54] LABS: ALBUMIN 3.7 g/dL (3.4-5.0); ALKALINE PHOSPHATASE 90 U/L (30-120); ALT (SGPT) 26 U/L (10-68); BILIRUBIN - DIRECT 0.19 mg/dL (0.00-0.30); BILIRUBIN - INDIRECT 0.65 mg/dL (0.00-1.00); BILIRUBIN - TOTAL 0.84 mg/dL (0.2-1.3); CALCIUM 8.9 mg/dL (8.5-10.1); CARBON DIOXIDE 26.8 mmol/L (21.0-32.0); CHLORIDE - SERUM 99 mmol/L (98-107); CKMB 0.9 U/L (0.0-3.6); CREATINE KINASE 61 UL (21-215); MAGNESIUM - SERUM 1.7 mg/dL (1.8-2.4); POTASSIUM - SERUM 3.9 mmol/L (3.5-5.1); PRO BNP 93 pg/mL (0-125); PROTEIN - SERUM 7.2 g/dL (6.4-8.2); SODIUM 136 mmol/L (136-145); THYROID STIMULATING HORMONE 1.23 uIU/mL (0.36-3.74); UREA NITROGEN 12 mg/dL (7-18); eGFR NON AFRICAN AMERICAN 61 mL/min (90-120)
[2020-01-25 15:58] LABS: CALC OSMOLALITY 290 mosm/kg (275-300); TROPONIN-I < 0.017 ng/mL (0.000-0.060)
[2020-01-25 16:00] LABS: GLUCOSE 434 mg/dL (74-106)
[2020-01-25 16:13] VITALS: BP 135/87; BMI 46.6
[2020-01-25 17:53] VITALS: BP 133/87
--- NOTE | 2020-01-25 19:30 | NUR ---
REPORT RECEIVED AND ROUNDING COMPLETE. PATIENT LAYING IN BED IN HIGH FOWLERS, A&O X4. PATIENT ASKED FOR A GLASS OF WATER WHICH SHE RECEIVED. NO THER NEEDS AT THIS TIME. PATIENT HAS A RIGHT FOREARM PIV THAT IS SALINE LOCKED BUT EASILY FLUSHED. PATIENT SHOWS NO S/SX OF DISTRESS AT THIS TIME. CALL LIGHT WITHIN REACH AND BED IN LOWEST LOCKED POSITION.
[2020-01-25 20:22] VITALS: BP 140/90
[2020-01-25 21:47] LABS: CKMB 0.8 U/L (0.0-3.6); CREATINE KINASE 58 UL (21-215)
[2020-01-25 21:51] LABS: TROPONIN-I < 0.017 ng/mL (0.000-0.060)
[2020-01-25 23:57] VITALS: BP 135/83
[2020-01-26] VITALS (7 sets, daily range): BP systolic 103–129; BP diastolic 50–91; Ht 165.1 cm; Wt 96.2 kg
[2020-01-26 04:18] LABS: CKMB 0.7 U/L (0.0-3.6); CREATINE KINASE 53 UL (21-215)
[2020-01-26 07:12] LABS: BASOPHILS 0.6 % (0-2); EOSINOPHILS 3.2 % (0-7); HEMOGLOBIN 13.6 g/dL (12-16); LYMPHOCYTES 38.5 % (15-50); MCH 28.4 pg (26.0-34.0); MCHC 32.4 g/dL (31.0-37.0); MCV 87.7 fL (80.0-100.0); MEAN PLATELET VOLUME 9.5 fL (7.4-10.4); MONOCYTES 10.7 % (2-11); PLATELET COUNT 301 10x3/uL (130-400); RBC 4.79 10x6/uL (4.00-5.40); RDW 12.8 % (11.5-14.5); WBC 4.7 10x3/uL (4.8-10.8)
[2020-01-26 07:32] LABS: CALCIUM 8.2 mg/dL (8.5-10.1); CARBON DIOXIDE 26.1 mmol/L (21.0-32.0); CHLORIDE - SERUM 101 mmol/L (98-107); CKMB 0.5 U/L (0.0-3.6); CREATINE KINASE 52 UL (21-215); MAGNESIUM - SERUM 1.7 mg/dL (1.8-2.4); POTASSIUM - SERUM 3.9 mmol/L (3.5-5.1); SODIUM 135 mmol/L (136-145); UREA NITROGEN 14 mg/dL (7-18); eGFR NON AFRICAN AMERICAN > 90 mL/min (90-120)
[2020-01-26 07:34] LABS: CALC OSMOLALITY 276 mosm/kg (275-300); CREATININE - SERUM 0.7 mg/dL (0.6-1.3); GLUCOSE 212 mg/dL (74-106); TROPONIN-I < 0.017 ng/mL (0.000-0.060)
[2020-01-27 04:11] VITALS: BP 124/78
[2020-01-27 07:02] LABS: BASOPHILS 0.6 % (0-2); EOSINOPHILS 2.7 % (0-7); HEMATOCRIT 43.4 % (36.0-48.0); HEMOGLOBIN 14.1 g/dL (12-16); IMMATURE GRANULOCYTES 0.2 % (0-5); LYMPHOCYTES 35.3 % (15-50); MCH 28.7 pg (26.0-34.0); MCHC 32.5 g/dL (31.0-37.0); MCV 88.4 fL (80.0-100.0); MEAN PLATELET VOLUME 9.5 fL (7.4-10.4); MONOCYTES 12.4 % (2-11); NEUTROPHILS 48.8 % (40-80); PLATELET COUNT 295 10x3/uL (130-400); RBC 4.91 10x6/uL (4.00-5.40); RDW 12.9 % (11.5-14.5); WBC 5.2 10x3/uL (4.8-10.8)
[2020-01-27 07:20] LABS: CALCIUM 8.7 mg/dL (8.5-10.1); CARBON DIOXIDE 27.1 mmol/L (21.0-32.0); CHLORIDE - SERUM 103 mmol/L (98-107); CREATININE - SERUM 0.6 mg/dL (0.6-1.3); GLUCOSE 239 mg/dL (74-106); SODIUM 138 mmol/L (136-145); eGFR NON AFRICAN AMERICAN > 90 mL/min (90-120)
[2020-01-27 07:22] LABS: CALC OSMOLALITY 285 mosm/kg (275-300); POTASSIUM - SERUM 4.5 mmol/L (3.5-5.1); UREA NITROGEN 18 mg/dL (7-18)
[2020-01-27 08:12] VITALS: BP 111/71
[2020-01-27 11:40] VITALS: BP 140/96
[2020-01-27 16:35] VITALS: BP 134/84
[2020-01-27] MEDS ORDERED: ASPIRIN325 MG PO (16:47)
--- NOTE | 2020-01-27 17:12 | NUR ---
PT DISCHARGED HOME VIA WHEELCHAIR WITH FAMILY. TELEMETRY REMOVED AND RETURNED. PT SIGNED PROPER DISCHARGE INSTRUCTIONS AND REMOVED ALL VALUABLES FROM THE ROOM.
--- NOTE | 2020-01-27 20:45 | MORECARE ---
CASE MANAGEMENT DISCHARGE SUMMARY PATIENT: MOHINI WOO UNIT: [id number] ADM DATE: 01/25/20 AGE: 54 : 63 SEX: F ROOM/BED: D.4470 AUTHOR: SHERRY MAYA PHYSICIAN: REFERRING PHYSICIAN: OLGA BACK DO DATE OF SERVICE: 01/27/20 Discharge Plan Patient Name: MOHINI WOO Facility: [facility]:[place] : 1965 Planned Disposition: Anticipated Discharge Date: Discharge Date: 01/27/2020 Expected LOS: Initial Reviewer: [email or web address] Initial Review Date: 01/25/2020 Generated: 01/27/20 9:44 pm External Providers External Provider: [facility] Next Contact Date: Service Request Date: Service Type: Resolution: Reviewer: Comments: Patient Name: MOHINI WOO Page 98447 at 2045 All edits/amendments must be made on the electronic document DICTATION DATE: 01/27/202043 SALES DEVELOPMENT EXECUTIVE: COURTNEY 01/27/202043 RPT#: [id number] DC DATE:01/27/20 STATUS: DIS IN [facility] [address] [place] [address] END OF REPORT
== END 2020-01-27 17:12 | disposition home or self-care (01) ==
LOC: D.M2 14:37 → OBSVTIME 14:37 → D.M2 14:37
PROVIDERS: Family Medicine; ADMIT Family Medicine; ATTEND Family Medicine
DX: I25.110 Atherosclerotic heart disease of native coronary artery with unstable angina pectoris (principal); E11.65 Type 2 diabetes mellitus with hyperglycemia; I10 Essential (primary) hypertension; E78.5 Hyperlipidemia, unspecified; K21.9 Gastro-esophageal reflux disease without esophagitis; E83.42 Hypomagnesemia; D72.819 Decreased white blood cell count, unspecified; I24.9 Acute ischemic heart disease, unspecified

== ENCOUNTER → 2020-03-02 09:01 | Outpatient (CLI) | payer OTHER ==
[2020-01-26 08:45] VITALS: BMI 46.6
[~2020-03-02 09:01] MED LIST changes: +ASPIRIN325 MG PO; +LIPITOR20 MG PO; +NEURONTIN 300300 MG PO
== END | disposition home or self-care (01) ==
LOC: D.MRI 09:01
PROVIDERS: ATTEND Orthopaedic Surgery
DX: S83.242A Other tear of medial meniscus, current injury, left knee, initial encounter (principal)

== ENCOUNTER 2020-11-03 22:43 | Observation (INO) | payer BC ==
[~2020-11-03] VITALS: Ht 165.1 cm; Wt 91.5 kg
--- NOTE | ~2020-11-03 | HEMODYNAMI ---
PATIENT:MOHINI WOO MEDICAL RECORD: [id number] : 63 LOCATION:[facility] D.2103 ADMISSION DATE: 11/04/20 Generatedon:19:27 Patient name: MOHINI WOO Patient #: [id number] SSN: : 1965 Date of study: 11/04/2020 Page: Of Hemodynamic Procedure Report Patient Data Patient Demographics Procedure consent was obtained First Name: MOHINI Gender: Female Last Name: CHILO : 1965 Middle Initial: MARIO Age: 55 year(s) Patient #: [id number] Race: Additional ID: [id number] Contact details Address: [address] State: [place] City: [place] Zip code: [address] Past Medical History History of disease Date Diagnosis Comments CAD Allergies: No known allergies Admission Admission Data Admission Date: 11/04/2020 Admission Time: 0:22 Arrival Date: 11/03/2020 Arrival Time: 0:00 Room #: D.2103 Height (in.): 64.96 BSA: 1.99 (m2) Height (cm.): 165 BMI: 33.79 (kg/m2) Weight (lbs.): 202.83 Weight (kg.): 92 Current Diagnosis Diagnosis Description Unstable angina Lab Results Lab Result Date: 11/04/2020 Lab Result Time: 0:00 Biochemistry Name Units Result Min Max BUN mg/dl 19 --(----)*- 7 18 Creatinine mg/dl 0.6 --(*---)-- 0.6 1.3 eGFR ml/min 90 --(*---)-- 90 120 NONAFRICAN CBC Name Units Result Min Max Hematocrit % 39.1 -*(----)-- 42 54 Hemoglobin g/dl 12.7 -*(----)-- 13.5 17.5 Procedure Procedure Types Cath Procedure Diagnostic Procedure LHC LHC w/Coronaries w/Grafts Procedure Description Procedure Date Procedure Date: 11/04/2020 Procedure Start Time: 9:12 Procedure End Time: 9:25 Procedure Staff Name Function Blaine Salazar MD Performing Physician Sheila Carroll RT Monitor Stacy Blood RT Scrub Maru Daniels RN Nurse Procedure Data Cath Procedure Fluoroscopy Diagnostic fluoroscopy Total fluoroscopy Time: 1.9 time: 1.9 min min Diagnostic fluoroscopy Total fluoroscopy dose: 392 dose: 392 mGy mGy Contrast Material Contrast Material Type Amount (ml) Isovue 300 74 Entry Location Entry Primary Successful Side Size Upsize Upsize Entry Closure Succes sful Closure Location (Fr) 1 (Fr) 2 (Fr) Remarks Device Remarks Femoral Right 5 Fr Exoseal artery Estimated blood loss: 5 ml Diagnostic catheters Device Type Used For End Catheter Placement MULTIPACK JL 4.0 5Fr Left Coronary catheter Angiography MULTIPACK 3DRC 5Fr Right Coronary catheter Angiography MULTIPACK 3DRC 5Fr SVG Angiography catheter MULTIPACK 3DRC 5Fr Internal mammary catheter arteriography DIAGNOSTIC AR MOD 5Fr SVG Angiography Catheter ([id number]) MULTIPACK Pigtail 5 Fr LV Angiography catheter Procedure Complications No complications Procedure Medications Medication Administration Route Dosage Oxygen etCO2 Nasal cannula 2 l/min Lidocaine 2% added to field 20 Heparin Flush Bag added to field 2 bags (1000units/500ml NS) 0.9% NaCl I.V. 100 ml/hr Versed I.V. 1 mg Fentanyl I.V. 50 mcg Lopressor I.V. 5 mg Versed I.V. 1 mg Fentanyl I.V. 50 mcg Hemodynamics Rest BSA: 1.99 (m2) O2 Consumption: Estimated: 199.96 (ml/min) O2 Consumption indexed : Estimated:100.48 (ml/min/m) Heart Rate: 82 (bpm) Pressure Samples Time Site Value (mmHg) Purpose Heart Use Rate(bpm) 9:19 LV 162/17,22 Snapshot 92 Gradients Valve Time Site Site Mean SEP/DFP Peak To Heart Use 1 2 (mmHg) (sec/min) Peak Rate (mmHg) (bpm) Aortic 9:20 LV AO 92 Snapshots Pre Cath Intra NCS Post Cath Vital Signs Time Heart Resp SPO2 etCO2 NIBP (mmHg) Rhythm Pain Sedation Rate (ipm) (%) (mmHg) Status Level (bpm) 9:02:23 92 26 100 0 175/103(140) NSR 0 (11) 10(A) , No pain 9:06:41 96 20 100 0 173/108(141) NSR 0 (11) 10(A) , No pain 9:10:57 93 15 98 15.9 167/101(125) NSR 0 (11) 10(A) , No pain 9:15:11 115 17 99 39.3 179/112(147) NSR 0 (11) 9(A) , No pain 9:20:38 92 18 99 37.1 168/104(140) NSR 0 (11) 9(A) , No pain 9:24:18 91 18 100 37.1 159/102(132) NSR 0 (11) 10(A) , No pain Medications Time Medication Route Dose Verified Delivered Reason Notes Effe ctiveness by by 9:02:09 Oxygen etCO2 2 Blaine Buffie used for Nasal l/min [facility] cannula 9:02:16 Lidocaine 2% added 20ml Blaine Blaine for local to vial [facility] anesthetic field MD CRAWFORD 9:02:22 Heparin Flush added 2 Blaine Blaine used for Bag to bags [facility] procedure (1000units/500ml field MD CRAWFORD NS) 9:02:32 0.9% NaCl I.V. 100 Blaine Buffie Per ml/hr Martin Frances RN physician 9:12:23 Versed I.V. 1 mg Blaine Buffie for Martin Daniels RN sedation 9:12:38 Fentanyl I.V. 50 Blaine Buffie for [facility] Martin Daniels RN sedation 9:15:01 Versed I.V. 1 mg Blaine Buffie for Martin Daniels RN sedation 9:15:05 Fentanyl I.V. 50 Blaine Buffie for [facility] Martin Daniels RN sedation 9:18:41 Lopressor I.V. 5 mg Blaine Buffie Per Martin Daniels RN physician Procedure Log Time Note 8:26:12 Informed consent obtained and on chart 8:29:17 Procedure type changed to Cath procedure, Diagnostic procedure, LHC, LHC w/Coronaries w/Grafts 8:29:47 Lab Result : eGFR NONAFRICAN 90 ml/min 8:29:47 Lab Result : Hemoglobin 12.7 g/dl 8:29:47 Lab Result : BUN 19 mg/dl 8:29:47 Lab Result : Creatinine 0.6 mg/dl 8:29:47 Lab Result : Hematocrit 39.1 % 8:30:05 Patient Weight : 202.83 lbs 8:30:09 Patient Height : 64.96 inches 8:30:13 Arrival Date: 11/03/2020 12:00:00 AM 8:30:20 Current Diagnosis : Unstable angina 8:30:39 Procedure Status Urgent Heart Cath (IP). 8:30:41 Time tracking: Regular hours (M-F 7:00 - 5:00) 8:30:44 Plan of Care:Hemodynamics will remain stable., Cardiac rhythm will remain stable., Comfort level will be maintained., Respiratory function will remain adequate., Patient/ family verbilizes understanding of procedure., Procedure tolerated without complication., Recovers from procedure without complications.. 8:30:57 H&P Date Dictated: 11/03/2020 ER History on chart.. 8:31:04 Patient allergic to No known allergies 8:41:48 Stacy Blood RT(R) sent for patient. Start room use. 8:56:50 Patient received from [employer] to CCL 1 Alert and oriented. Tansferred to table in Supine position. 8:56:52 Warm blankets applied, and arie hugger turned on for patient comfort. 8:56:52 Correct patient and procedure confirmed by team. 8:56:52 ECG and BP/O2 sat monitors applied to patient. 8:56:54 Pre-procedure instructions explained to patient. 8:56:54 Pre-op teaching completed and patient verbalized understanding. 9:01:15 Vital chart was started 9:01:20 Rhythm: sinus rhythm 9:01:22 Full Disclosure recording started 9:02:09 Oxygen 2 l/min etCO2 Nasal cannula was administered by Maru Daniels RN; used for procedure; Verbal order read back and verified. 9:02:16 Lidocaine 2% 20ml vial added to field was administered by Blaine Salazar MD; for local anesthetic; Verbal order read back and verified. 9:02:22 Heparin Flush Bag (1000units/500ml NS) 2 bags added to field was administered by Blaine Salazar MD; used for procedure; Verbal order read back and verified. 9:02:32 0.9% NaCl 100 ml/hr I.V. was administered by Maru Daniels RN; Per physician; Verbal order read back and verified. 9:02:36 Family unavailable. 9:02:38 Patient NPO since Midnight. 9:02:43 Is the patient allergic to Iodine/contrast media? No. 9:03:26 Is patient on blood thinner?No 9:03:31 Patient diabetic? Yes. 9:03:32 If diabetic: On Metformin? Yes 9:05:05 If on Metformin: Last Dose? 11/03/2020 9:05:11 Previous problem with sedation/anesthesia? No ? 9:05:12 Snore? No 9:05:13 Sleep apnea? No 9:05:14 Deviated septum? No 9:05:15 Opens mouth fully? Yes 9:05:16 Sticks out tongue? Yes 9:05:19 Airway obstruction? Yes Asthma 9:05:22 Dentures? No ? 9:05:25 Pre procedure: right dorsailis pedis pulse 2+ Normal; easily identifiable; not easily obliterated 9:05:27 Patient pain scale 0/10 ?. 9:05:43 IV patent on arrival in right antecubital with 0.9% NaCl at [facility]. 9:05:47 Lab results completed and on chart. 9:08:46 Right groin area was prepped with chlora-prep and draped in sterile fashion 9:08:47 Alarms reviewed by R. N. 9:08:48 Sharps counted by scrub and verified by R.N. 9:09:06 Risk of Mortality: 0.1 9:09:16 Risk of blood transfusion: 2.4 9:09:23 Risk of FRANCESCA: 2.6 9:09:27 Zero performed for pressure channel P1 9:09:42 Use device set Femoral Dx 9:09:44 ACIST Syringe (74071) opened to sterile field. 9:09:45 Bag Decanter (2002) opened to sterile field. 9:09:45 Medline Cath Pack ([id number]) opened to sterile field. 9:09:46 ACIST Hand Control (45903) opened to sterile field. 9:09:47 ACIST Manifold (60457) opened to sterile field. 9:09:48 DIAGNOSTIC Multipack 5Fr catheter set (UI2097) opened to sterile field. 9:09:52 SHEATH 5FR [place] (EGX703) opened to sterile field. 9:09:54 EMERALD Guide Wire (257-400) opened to sterile field. 9:11:31 Final Timeout: patient, procedure, and site verified with staff and physician. All members of the team are in agreement. 9:11:33 Right groin site verified by team. 9:11:37 Fire Safety Assessment: A--An alcohol-based skin anteseptic being used preoperatively., C--Open oxygen or nitrous oxide is being used., D--An ESU, laser, or fiber-optic light is being used. 9:11:42 Physical assessment completed. ASA score P 2 - A patient with mild systemic disease as per Blaine Salazar MD. 9:11:54 1) 90+ Normal kidney functon but urine findings or structural abnormalities or genetic trait point to kidney disease. 9:11:58 Maximum allowable contrast dose (3.7 X eGFR X 0.75)250 ml. 9:12:01 Sedation plan: IV Moderate Sedation Medication:Versed, Fentanyl 9:12:05 Procedure started. 9:12:08 Local anesthetic to right femoral artery with Lidocaine 2% by Blaine Salazar MD.INITIAL ACCESS ONLY 9:12:16 A 5 Fr sheath was inserted into the Right Femoral artery 9:12:23 Versed 1 mg I.V. was administered by Maru Daniels RN; for sedation; Verbal order read back and verified. 9:12:38 Fentanyl 50 mcg I.V. was administered by Maru Daniels RN; for sedation; Verbal order read back and verified. 9:13:58 A MULTIPACK JL 4.0 5Fr catheter was advanced over the wire and used for Left Coronary Angiography. 9:14:40 Catheter removed. 9:15:01 Versed 1 mg I.V. was administered by Maru Daniels RN; for sedation; Verbal order read back and verified. 9:15:05 Fentanyl 50 mcg I.V. was administered by Maru Daniels RN; for sedation; Verbal order read back and verified. 9:15:11 A MULTIPACK 3DRC 5Fr catheter was advanced over the wire and used for Right Coronary Angiography. 9:16:06 A MULTIPACK 3DRC 5Fr catheter was advanced over the wire and used for SVG Angiography. 9:17:03 A MULTIPACK 3DRC 5Fr catheter was advanced over the wire and used for Internal mammary arteriography. 9:17:06 Catheter removed. 9:17:47 A DIAGNOSTIC AR MOD 5Fr Catheter ([id number]) was advanced over the wire and used for SVG Angiography. 9:18:41 Lopressor 5 mg I.V. was administered by Maru Daniels RN; Per physician; Verbal order read back and verified. 9:18:55 Catheter removed. 9:18:59 A MULTIPACK Pigtail 5 Fr catheter was advanced over the wire and used for LV Angiography. 9:19:49 LV gram done using YBARRA 9:19:56 EF : 50 % 9:20:00 LV hemodynamics recorded. 9:20:04 Injector settings: Ml/sec: 10, Volume: 20, 9:20:07 Catheter removed. 9:20:34 Tegaderm 4 x 4 (1626W) opened to sterile field. 9:20:35 EXOSEAL 5Fr (EX500) opened to sterile field. 9:20:48 Sheath removed intact; hemostasis achieved with Exoseal to the Right Femoral artery. 9:21:13 Procedure ended.(Physican Out) 9:21:21 Fluoroscopy time 01.90 minutes. 9:21:26 Fluoroscopy dose: 392 mGy 9:21:26 Flurop Dose total: 392 9:21:31 Dose Area Product 31.8 mGy/cm. 9:21:36 Contrast amount:Isovue 300 74ml. 9:21:39 Maximum allowable dose exceeded? No. 9:21:40 Sharps counted by scrub and verified by R.N. 9:21:42 Insertion/operative site no bleeding no hematoma. 9:21:45 Post-op/insertion site Right Femoral artery dressed using a 4 x 4 and Tegaderm. 9:21:49 Post right femoral artery:stable, clean and dry 9:21:51 Post Procedure Pulses reassessed and unchanged 9:21:57 Post-procedure physical assessment completed. ASA score P 2 - A patient with mild systemic disease as per Blaine Salazar MD. 9:22:07 Post procedure rhythm: unchanged. 9:22:11 Estimated blood loss: 5 ml 9:22:12 Post procedure instruction explained to patient.Patient verbalizes understanding. 9:22:13 Patient needs reinforcement of post procedure teaching. 9:22:27 Procedure Complication : No complications 9:23:15 Procedure and supply charges have been captured, reviewed, submitted and are correct. 9:24:52 Vital chart was stopped 9:24:55 See physician's report for complete and final results. 9:24:58 Operative report dictated upon procedure completion. 9:25:00 Report given to PCU. 9:25:09 Patient transfered to PCU with Bed. 9:25:13 Procedure ended. 9:25:13 Full Disclosure recording stopped Device Usage Item Name Manufacture Quantity Catalog Hospital Part Current Minimal L ot# / Number Charge Number Stock Stock Serial# Code ACIST Acist 1 50028 [id number] 280226 [id number] 20 Syringe Medical (51246) Systems Inc Bag Microtek 1 2001S 889001 47240 821998 5 Decanter Medical Inc. () Medline Medline 1 [id number] 678586 96082 228082 5 Cath Pack ([id number]) ACIST Hand Acist 1 46772 436374 695189 343095 5 Control Medical (08181) Systems Inc ACIST Acist 1 58829 746525 583093 951076 5 Manifold Medical (32375) Systems Inc DIAGNOSTIC Cardinal 1 TF7583 701792 25268 758047 30 Multipack Health 5Fr catheter set (AX4212) SHEATH 5FR Terumo 1 [id number] 828371 275967 171875 5 [place] (ALU623) EMERALD Cardinal 1 502-455 111684 947046 053004 5 Guide Wire Health (502-455) MULTIPACK Cardinal 1 176572 5 JL 4.0 5Fr Health catheter MULTIPACK Cardinal 1 826807 5 3DRC 5Fr Health catheter DIAGNOSTIC Cardinal 1 [id number] 201229 101632 666936 15 AR MOD 5Fr Health Catheter (737351L) MULTIPACK Cardinal 1 064110 5 Pigtail 5 Health Fr catheter Tegaderm 4 3M 1 1626W 395196 462889 145913 5 x 4 (1626W) EXOSEAL 5Fr Cardinal 1 EX500 603995 493504 901398 10 (EX500) Health Signature Audit [place] Stage Time Signature Unsigned Intra-Procedure 11/04/2020 Blaine Paz 9:25:46 AM Manohar CRAWFORD; Maru Daniels RN; Sheila Carroll RT(R) [place] [address] [id number] [place] [address]
[2020-11-03 23:00] VITALS: BP 158/80
[2020-11-03 23:12] LABS: BASOPHILS 0.3 % (0-2); EOSINOPHILS 2.1 % (0-7); HEMATOCRIT 42.2 % (36.0-48.0); HEMOGLOBIN 13.8 g/dL (12-16); IMMATURE GRANULOCYTES 0.2 % (0-5); LYMPHOCYTES 39.7 % (15-50); MCH 28.4 pg (26.0-34.0); MCHC 32.7 g/dL (31.0-37.0); MCV 86.8 fL (80.0-100.0); MEAN PLATELET VOLUME 9.1 fL (7.4-10.4); MONOCYTES 9.3 % (2-11); NEUTROPHILS 48.4 % (40-80); PLATELET COUNT 294 10x3/uL (130-400); RBC 4.86 10x6/uL (4.00-5.40); WBC 5.8 10x3/uL (4.8-10.8)
[2020-11-03 23:37] LABS: APTT 24.8 SECONDS (22.8-39.4); INR 1.02 (0.85-1.17); PROTIME 12.4 SECONDS (11.6-15.0)
[2020-11-03 23:39] LABS: ALBUMIN 3.8 g/dL (3.4-5.0); ALKALINE PHOSPHATASE 80 U/L (30-120); ALT (SGPT) 19 U/L (10-68); BILIRUBIN - TOTAL 0.44 mg/dL (0.2-1.3); CALC OSMOLALITY 292 mosm/kg (275-300); CALCIUM 8.8 mg/dL (8.5-10.1); CARBON DIOXIDE 22.2 mmol/L (21.0-32.0); CHLORIDE - SERUM 102 mmol/L (98-107); CKMB 0.3 U/L (0.0-3.6); CREATINE KINASE 65 UL (21-215); CREATININE - SERUM 1.1 mg/dL (0.6-1.3); MAGNESIUM - SERUM 1.7 mg/dL (1.8-2.4); POTASSIUM - SERUM 3.9 mmol/L (3.5-5.1); PRO BNP 98 pg/mL (0-125); PROTEIN - SERUM 7.5 g/dL (6.4-8.2); SODIUM 135 mmol/L (136-145); TROPONIN-I < 0.017 ng/mL (0.000-0.060); UREA NITROGEN 20 mg/dL (7-18); eGFR NON AFRICAN AMERICAN 54 mL/min (90-120)
[2020-11-03 23:54] LABS: GLUCOSE 460 mg/dL (74-106)
[2020-11-04] VITALS: BP 131/79
[2020-11-04] MEDS ORDERED: NITROQUICK0.4 MG SL (02:07)
[2020-11-04] MEDS ORDERED: GABAPENTIN300 MG PO (02:10)
--- NOTE | 2020-11-04 02:15 | NUR ---
ORIENTED PATIENT TO ROOM. NO S/S OF DISTRESS.AAOX4. ASSESSMENT COMPLETE. CLIR. BED IN LOWEST POSTION. WILL CONT TO MONITOR.
[2020-11-04 02:22] VITALS: BP 123/90; BMI 33.6
[2020-11-04 04:30] VITALS: BP 99/50
[2020-11-04 05:37] LABS: BASOPHILS 0.3 % (0-2); EOSINOPHILS 2.4 % (0-7); HEMATOCRIT 39.1 % (36.0-48.0); HEMOGLOBIN 12.7 g/dL (12-16); IMMATURE GRANULOCYTES 0.3 % (0-5); LYMPHOCYTE ABS# 1.99 10x3/uL (1.18-3.74); LYMPHOCYTES 29.4 % (15-50); MCH 28.2 pg (26.0-34.0); MCHC 32.5 g/dL (31.0-37.0); MCV 86.9 fL (80.0-100.0); MEAN PLATELET VOLUME 9.1 fL (7.4-10.4); MONOCYTES 10.8 % (2-11); NEUTROPHIL ABS# 3.85 10x3/uL (1.56-6.13); NEUTROPHILS 56.8 % (40-80); PLATELET COUNT 270 10x3/uL (130-400); RDW 13.1 % (11.5-14.5); WBC 6.8 10x3/uL (4.8-10.8)
[2020-11-04 06:22] LABS: ALBUMIN 3.3 g/dL (3.4-5.0); ALKALINE PHOSPHATASE 66 U/L (30-120); BILIRUBIN - TOTAL 0.36 mg/dL (0.2-1.3); CALCIUM 8.4 mg/dL (8.5-10.1); CARBON DIOXIDE 26.1 mmol/L (21.0-32.0); CHLORIDE - SERUM 103 mmol/L (98-107); POTASSIUM - SERUM 3.8 mmol/L (3.5-5.1); PROTEIN - SERUM 6.5 g/dL (6.4-8.2); SODIUM 137 mmol/L (136-145); UREA NITROGEN 19 mg/dL (7-18)
[2020-11-04 06:28] LABS: ALT (SGPT) 24 U/L (10-68); CALC OSMOLALITY 282 mosm/kg (275-300); CREATININE - SERUM 0.6 mg/dL (0.6-1.3); GLUCOSE 233 mg/dL (74-106); TROPONIN-I < 0.017 ng/mL (0.000-0.060); eGFR NON AFRICAN AMERICAN > 90 mL/min (90-120)
--- NOTE | 2020-11-04 07:20 | NUR ---
LYING IN BED, AWAKE/ALERT/ORIENTED, T/R SELF AD OSIRIS, CONT OF B/B WITH BRPs PER SELF AD OSIRIS, DENIES PAIN/OTHER DISCOMFORT AT THIS TIME, CALL LIGHT/PHONE/WATER WITHIN REACH, NO S/S OF ACUTE DISTRESS OBSERVED.
[2020-11-04 08:23] VITALS: BP 104/71
[2020-11-04 08:33] LABS: CHOL - HDL RATIO 4.6 ratio (2.3-4.1); LDL-HDL RATIO 3.1 ratio (1.5-3.5)
--- NOTE | 2020-11-04 09:20 | NUR ---
OFF UNIT FOR PROCEDURE
--- NOTE | 2020-11-04 10:00 | NUR ---
RETURNED FROM CASE CONSULTANT, LAYING FLAT FOR 2 HRS D/T XO SEAL AFTER A CLEAN CATH, CALL LIGHT/PHONE/WATER WITHIN REACH, NO S/S OF ACUTE DISTRESS.
[2020-11-04 11:51] VITALS: BP 112/69
[2020-11-04 11:58] VITALS: BP 112/69
[2020-11-04] MEDS ORDERED: ALDACTONE25 MG PO (12:28)
[2020-11-04] MEDS ORDERED: LISINOPRIL10 MG PO (12:29)
[2020-11-04 13:15] VITALS: Ht 165.1 cm; Wt 91.5 kg
--- NOTE | 2020-11-04 13:25 | NUR ---
PROVIDED WRITTEN/VERBAL DISCHARGE INSTRUCTIONS/EDUCATION TO WHICH PT VOICED UNDERSTANDING, DISCONTINUED IV ACCESS AT THIS TIME.
--- NOTE | 2020-11-04 13:30 | NUR ---
DISCHARGED HOME WITH HOME HEALTH SERVICES IN STABLE CONDITION VIA W/C ACCOMPANIED BY HOSPITAL STAFF, NO S/S OF ACUTE DISTRESS OBSERVED.
--- NOTE | 2020-11-04 15:59 | MORECARE ---
CASE MANAGEMENT DISCHARGE SUMMARY PATIENT: MOHINI WOO UNIT: [id number] ADM DATE: 11/04/20 AGE: 55 : 63 SEX: F ROOM/BED: D.[facility] AUTHOR: HSERRY MAYA PHYSICIAN: REFERRING PHYSICIAN: FLY WEAVER MD DATE OF SERVICE: 11/04/20 Discharge Plan Patient Name: MOHINI WOO Facility: [facility]:[place] : 1965 Planned Disposition: Anticipated Discharge Date: Discharge Date: 11/04/2020 Expected LOS: 0 Initial Reviewer: [email or web address] Initial Review Date: 11/04/2020 Generated: 11/04/20 4:59 pm Patient Name: MOHINI WOO Page [id number] at 1559 All edits/amendments must be made on the electronic document DICTATION DATE: 11/04/20 1559 BI TRI OPERATOR: COURTNEY 11/04/20 1559 RPT#: [id number] DC DATE:11/04/20 STATUS: DIS IN [facility] [address] [place] [address] END OF REPORT
--- NOTE | 2020-11-07 08:09 | OP ---
PATIENT NAME: MOHINI WOO MEDICAL RECORD: [id number] :63 LOCATION:D.M2 D.2103 ADMISSION DATE:11/04/20 SURGEON: ORTIZ FIGUEROA MD DATE OF OPERATION: 11/04/2020 PROCEDURE: Left heart catheterization, selective coronary angiography, right femoral artery approach. CATHETERS: A 5-Chinese sheath, 5/4 left and right Mariana, 5/4 pig. The procedure was well tolerated. The patient returned to the mitchell. Sheath removed. ExoSeal device placed. FINDINGS: Left ventriculography in 30-degree YBARRA view shows mild LV hypo, he has probably lower limits of normal to mildly reduced 45-50%. CORONARY ANATOMY: LEFT MAIN: Free of disease. LAD: Fills for a short period of time and is seen filling via competitive flow. CIRCUMFLEX: Proximally occluded right coronary artery, 90% stenosis and totally occluded again. BYPASS GRAFTS: VAN to LAD: Widely patent throughout its course without evidence of post-anastomotic stenosis. CIRCUMFLEX GRAFT: Saphenous vein graft to circumflex widely patent throughout its course without evidence of post-anastomotic stenosis. Saphenous vein graft to the right widely patent throughout its course. No evidence post-anastomotic stenosis. IMPRESSION: Widely patent bypass grafts. LV function lower limits of normal to mildly reduced. We will add Aldactone. Suspect this is more of a demand type physiology with marked hypertension, certainly, and bypass grafts look excellent. TRANSINT:[id number] Voice Confirmation ID: [id number] DOCUMENT ID: [id number] ORTIZ FIGUEROA MD at 0809 CC: [id number] DICTATION DATE: 11/04/20927 SENIOR BIOSTATISTICIAN/GROUP LEADER: 11/04/20 1950 DIS IN 11/04/20 [facility] [address] [place] [address]
--- NOTE | 2020-11-07 08:09 | CN ---
PATIENT NAME:MOHINI WOO MEDICAL RECORD: [id number] : 63 LOCATION:D. D.2103 ADMIT DATE: 11/04/20 ACCOUNT: [id number] CONSULTING PHYSICIAN: ORTIZ FIGUEROA MD REFERRING PHYSICIAN: FLY WEAVER MD DATE OF CONSULTATION: 11/04/2020 HISTORY OF PRESENT ILLNESS: A 55-year-old female with a known history of coronary artery disease, status post multiple interventions, subsequently had coronary artery bypass grafting back in 2018, has done fairly well since that time, admitted last summer with recurrent chest pain, underwent Cardiolite stress testing with patent grafts. She is admitted this time after presenting from work with breathlessness, chest tightness, pressure, hypertension, hyperglycemia, sugar approaching 500. We are asked to see her concerning her cardiovascular status. Does report some effort intolerance over the past 3 to 4 weeks, chest heaviness and tightness. PAST MEDICAL HISTORY: Includes; 1. History of coronary artery disease as described above. 2. Hypertension. 3. Hyperlipidemia. 4. Diabetes mellitus. MEDICATIONS: Include metformin 1 gram b.i.d., glipizide 5 mg b.i.d., Victoza 1.2 mg daily, Neurontin 600 b.i.d., aspirin 325 every day, Celexa 20 every day, atorvastatin 20 at bedtime, isosorbide 30 every day, metoprolol 50 b.i.d. SOCIAL HISTORY: Continues to work. No set exercise program. No illicit drug use. REVIEW OF SYSTEMS: The patient reports easy bruising but reports no swollen glands. The patient reports no fever, no night sweats, no significant weight gain, no significant weight loss. No significant exercise tolerance. The patient reports no dry eyes, no irritation, no vision change. Patient reports no difficulty hearing and no ear pain. Patient reports no frequent nose bleeds or nose and sinus problems. Patient reports on arm pain on exertion. No shortness of breath while lying down. No history of heart murmur. Patient reports no cough, no wheezing or coughing up blood. Patient reports no abdominal pain, no vomiting. Normal appetite. No diarrhea and not vomiting blood. No nausea and no constipation. Patient reports no incontinence. No difficulty urinating. No hematuria. No increased frequency. Patient reports no muscle aches. No weakness, no arthralgias, no back pain. No swelling of the extremities. Patient reports no abnormal mole, no jaundice, no rashes. Reports no loss of consciousness. No weakness and no numbness. No seizures, dizziness, or headaches. The patient reports no depression, no sleep disturbance, feeling safe in a relationship and no alcohol abuse. Patient reports on fatigue. Reports no runny nose or sinus pressure. No itching, no hives, and no frequent sneezing. PHYSICAL EXAMINATION: GENERAL: Well-developed, well-nourished. No acute distress. VITAL SIGNS: Blood pressure 104/71, pulse 84 and regular. HEENT: Normocephalic, atraumatic. NECK: No JVD or bruit. HEART: Regular. S4 gallop is noted. CONSULT REPORT [id number] MOHINI WOO LUNGS: Good air excursion. ABDOMEN: Soft and nontender. EXTREMITIES: Pulses 2+. No edema. IMPRESSION AND PLAN: Acute coronary syndrome with progressive symptomatology. Some of this may be demand type given hypertensive elevated glucose, etc.; however, given history and risk symptomatology we will plan for angiography and intervention based on the above. TRANSINT:[id number] Voice Confirmation ID: [id number] DOCUMENT ID: [id number] ORTIZ FIGUEROA MD at 0809 CC: [id number] DICTATION DATE: 11/04/20906 FUNERAL HOME MANAGER: 11/04/20 1419 DIS IN 11/04/20 [place] [id number] [place] [id number]
== END 2020-11-04 13:30 | disposition home or self-care (01) ==
LOC: D.ER 22:43 → D.EDHOLD 11-04 00:22 → OBSVTIME 11-04 00:22 → D.M2 11-04 01:50
PROVIDERS: Family Medicine; Internal Medicine Interventional Cardiology; ADMIT Family Medicine; ATTEND Family Medicine
DX: R07.9 Chest pain, unspecified (principal); E11.65 Type 2 diabetes mellitus with hyperglycemia; I10 Essential (primary) hypertension; I25.110 Atherosclerotic heart disease of native coronary artery with unstable angina pectoris; E78.5 Hyperlipidemia, unspecified; K21.9 Gastro-esophageal reflux disease without esophagitis; J45.909 Unspecified asthma, uncomplicated; Z79.84 Long term (current) use of oral hypoglycemic drugs; E83.42 Hypomagnesemia

== ENCOUNTER 2021-01-16 05:43 | Day surgery (SDC) | payer BC ==
[~2021-01-16] VITALS: Ht 165.1 cm; Wt 87.7 kg
[~2021-01-16 05:43] MED LIST changes: +ALDACTONE25 MG PO; +GABAPENTIN300 MG PO; +LISINOPRIL10 MG PO; +NITROQUICK0.4 MG SL
[2021-01-16 06:11] LABS: CALC OSMOLALITY 287 mosm/kg (275-300); CALCIUM 8.5 mg/dL (8.5-10.1); CARBON DIOXIDE 26.4 mmol/L (21.0-32.0); CHLORIDE - SERUM 105 mmol/L (98-107); CREATININE - SERUM 0.7 mg/dL (0.6-1.3); GLUCOSE 246 mg/dL (74-106); POTASSIUM - SERUM 3.9 mmol/L (3.5-5.1); SODIUM 140 mmol/L (136-145); UREA NITROGEN 16 mg/dL (7-18); eGFR NON AFRICAN AMERICAN > 90 mL/min (90-120)
[2021-01-16 06:37] LABS: BASOPHILS 0.9 % (0-2); EOSINOPHILS 2.8 % (0-7); HEMATOCRIT 40.9 % (36.0-48.0); HEMOGLOBIN 13.8 g/dL (12-16); LYMPHOCYTES 31.3 % (15-50); MCH 29.1 pg (26.0-34.0); MCHC 33.7 g/dL (31.0-37.0); MCV 86.2 fL (80.0-100.0); MEAN PLATELET VOLUME 7.3 fL (7.4-10.4); MONOCYTES 9.1 % (2-11); NEUTROPHILS 55.9 % (40-80); RBC 4.75 10x6/uL (4.00-5.40); RDW 13.4 % (11.5-14.5); WBC 7.9 10x3/uL (4.8-10.8)
[2021-01-16 06:44] VITALS: BP 116/86; Ht 165.1 cm; Wt 87.7 kg
[2021-01-16] MEDS ORDERED: TRULICITY1.5 MG/0.5 SC (06:51)
[2021-01-16 07:00] LABS: PLATELET COUNT 343 10x3/uL (130-400)
[2021-01-16] MEDS ORDERED: PROTONIX20 MG PO (09:05)
--- NOTE | 2021-01-16 09:20 | NUR ---
PIV DC'D WITH CATHETER INTACT. PT DRESSING, DC TEACHING COMPLETE, VERBALIZED UNDERSTANDING. 2864 PT DC'D VIA WC ACCOMPANINED BY THIS NURSE TO POV WITH ALL BELONGINGS AND DC PACKET. DRIVING.
== END 2021-01-16 09:37 | disposition home or self-care (01) ==
LOC: D.OPS 05:43
PROVIDERS: Anesthesiology; ATTEND Surgery
DX: R10.13 Epigastric pain (principal); Z87.19 Personal history of other diseases of the digestive system; I25.10 Atherosclerotic heart disease of native coronary artery without angina pectoris; I10 Essential (primary) hypertension; E11.9 Type 2 diabetes mellitus without complications

== ENCOUNTER → 2021-02-15 06:45 | Day surgery (SDC) | payer MEDICARE, OTHER ==
[2021-02-13 14:01] LABS: BASOPHILS 0.9 % (0-2); EOSINOPHILS 1.7 % (0-7); HEMATOCRIT 44.1 % (36.0-48.0); HEMOGLOBIN 14.8 g/dL (12-16); LYMPHOCYTES 39.4 % (15-50); MCH 29.2 pg (26.0-34.0); MCHC 33.6 g/dL (31.0-37.0); MONOCYTES 10.6 % (2-11); NEUTROPHILS 47.4 % (40-80); PLATELET COUNT 343 10x3/uL (130-400); RBC 5.07 10x6/uL (4.00-5.40); RDW 13.3 % (11.5-14.5); WBC 6.7 10x3/uL (4.8-10.8)
[2021-02-13 14:08] LABS: CALC OSMOLALITY 282 mosm/kg (275-300); CALCIUM 8.9 mg/dL (8.5-10.1); CARBON DIOXIDE 26.7 mmol/L (21.0-32.0); CHLORIDE - SERUM 103 mmol/L (98-107); CREATININE - SERUM 0.7 mg/dL (0.6-1.3); GLUCOSE 146 mg/dL (74-106); POTASSIUM - SERUM 4.2 mmol/L (3.5-5.1); SODIUM 140 mmol/L (136-145); UREA NITROGEN 15 mg/dL (7-18); eGFR NON AFRICAN AMERICAN > 90 mL/min (90-120)
[~2021-02-15] VITALS: Ht 165.1 cm; Wt 88.5 kg
[~2021-02-15 06:45] MED LIST changes: +BREO ELLIPTA 11 EACH INH; +EFFEXOR75 MG; +FARXIGA10 MG PO; +FLUTICASONE PRO16 GM NASAL; +NEXIUM20 MG PO; +PROTONIX20 MG PO; +TRULICITY1.5 MG/0.5 SC; +TYLENOL W/CODEI1 TAB PO; +ZYRTEC10 MG PO
[2021-02-15 08:25] VITALS: BP 130/79; Ht 165.1 cm; Wt 88.5 kg
--- NOTE | 2021-02-15 15:43 | NUR ---
1415 - IV D/C'D WITH TIP INTACT. PATIENT UP TO BATHROOM TO DRESS FOR DISCHARGE AND TO VOID.
--- NOTE | 2021-02-15 15:43 | NUR ---
1425 - DISCHARGED VIA WHEELCHAIR TO PRIVATE CAR. DISCHARGE INSTRUCTIONS GIVEN TO BOTH PATIENT AND SPOUSE.
== END | disposition home or self-care (01) ==
LOC: D.OPS 02-13 12:33
PROVIDERS: Anesthesiology; ATTEND Surgery
DX: K21.9 Gastro-esophageal reflux disease without esophagitis (principal)